=== PATIENT | male | born 1965 | race Caucasian/White ===

== ENCOUNTER 2021-01-29 22:03 | Inpatient (IN) | payer MEDICAID, SELFPAY ==
[2021-01-29 21:33] VITALS: BMI 32.0
[2021-01-29 21:34] VITALS: BP 137/82; PULSE 84; RESP 28; TEMP 37.7; O2SAT 89
--- NOTE | 2021-01-29 22:08 | HP.PCM.HOS_ITS ---
HPI - General General Date of Admission: 01/29/21 Date of Service: 01/29/21 Chief Complaint: COVID-LIKE SYMPTOMS HPI Narrative MICHELLE SCHMITZ, is a 55 M previous healthy who presents to outside hospital emergency department with a 9-day history of progressively worsening Covid-like symptoms. He describes his covid-like symptoms as shortness of breath; productive cough with greenish-yellowish sputum; fatigue; weakness; dysgeusia; anosmia; myalgia; and chills. He denies sore throat. He denies anorexia or diarrhea. He is not been vaccinated against COVID-19 virus. PFSH Medical History no medical history no medical history Home Medications vit A-vit O-bude-sdstrgli [Zinc (with A and C) Lozenges] 1 chas PO Q2H 01/29/21 [History Last Taken Unknown] Allergy/AdvReac Type Severity Reaction Status Date / Time No Known Allergies Allergy Verified 01/29/21 21:57 Family History (Updated 01/29/21 @ 22:[address] Rashad Abebe MD) Other Cancer Surgical History History of ear surgery Social History Smoking Status: Never smoker ROS ROS Narrative Constitutional: Reports fever, chills, and fatigue. Denies anorexia and change in weight Eyes: Denies blurry vision, change in eye color, change in vision, discharge from eye(s), double vision, erythema, eye pain, loss of vision or other HEENT: Denies abnormal hearing, dysphagia, ear pain, epistaxis, headache(s), hearing loss, nasal congestion, nasal discharge, post nasal drip, sinus pressu re, sore throat or other Cardiovascular: Denies chest pain or palpitations. Respiratory/Chest: Reports SOB. Reports productive cough. Gastrointestinal: Denies abdominal pain, coffee ground emesis, constipation, diarrhea, dyspepsia, hematemesis, hematochezia, loose stools, melena, nausea, vomiting or other Genitourinary: Denies burning urination, difficulty urinating, dysuria, hematuria, nocturia, urinary frequency, urinary hesitancy, urinary incontinence, urinary urgency or other Musculoskeletal: Reports myalgia and back pain. Neurologic: Denies abnormal gait, abnormal speech, confusion, disequilibrium, dizziness, focal weakness, headache(s), numbness, paresthesias, seizure-like activity, seizures, syncope, tingling, tremor(s) or other Psychiatric: Denies anxiety, depression, homicidal ideation, suicidal ideation or other Endocrinology: Denies change in body appearance, cold intolerance, excessive sweating, heat intolerance, polydipsia, polyuria or other Hematologic/Lymphatic: Denies anemia, easy bleeding, easy bruising, lymphadenopathy or other Integumentary: Denies rashes Allergic/Immunologic: Denies rhinitis, hives, eczema, asthma or other Vital Signs Vital Signs Vital Signs: 01/29/21 21:34 Temperature 99.8 F H Temperature Source Oral Pulse Rate 84 Respiratory Rate 28 H Blood Pressure 137/82 H Blood Pressure Mean 100 Blood Pressure Source Monitor Blood Pressure Position Semi-Fowlers Blood Pressure Location Right Arm Pulse Ox 89 Oxygen Delivery Method Nasal Cannula Oxygen Flow Rate (L/min) 15 Weight Weight: 101.2 kg Body Mass Index (BMI) 32.0 Physical Exam Narrative Physical exam: General: Well-nourished, well-developed. Head: Normocephalic, atraumatic, no tenderness Eyes: PERRLA, EOMI ENT, no trauma, moist mucous membranes, no rhinorrhea Neck: Nontender, full range of motion, no spinal tenderness, deformities, step- off CVS: Regular rate and rhythm. S1-S2 present. No murmur, gallop or rub. Respiratory : Tachypnea; Rales; chest wall nontender. Abdomen: Soft, nontender, nondistended, normal bowel sounds, no masses : Deferred Back: Nontender, no CVA tenderness, no midline spinal tenderness, deformities, step-offs Extremities: Nontender full range of motion, no trauma Skin: Normal color, no trauma, abrasions Neuro: Alert, oriented, cranial nerves II through XII grossly intact. Psychiatry: Normal mood. Normal affect. Not depressed. Not anxious. Assessment & Plan Assessment/Plan (1) Acute respiratory failure with hypoxemia: (2) Pneumonia due to COVID-19 virus: PLAN: Acute hypoxemic respiratory failure secondary to SARS- COV 2 Chest x-ray image independently interpreted showed multifocal pneumonia. Patient with tachypnea. Respiratory rate of 28. On high Flow oxygen of 15 L with oxygen saturation of 89%. Continue supplemental oxygenation and titrate to keep oxygen to 90%. Positive coronavirus test at outside hospital ED. Patient with mild elevation of liver enzymes at outside hospital ED. Alkaline phosphatase at outside hospital 73; ALT 104; AST 70. Estimated creatinine clearance by Cockcroft-Gault is 136 mL/min. Creatinine also hospital was 0.88. Creatinine clearance is more than 30. Begin patient on remdesivir and Decadron. Trend CBC and CMP. Normal D-dimer at outside hospital. Check procalcitonin. Incentive spirometer ordered Tylenol for fever Mucinex ordered Proair as needed. Infectious disease consult. Elevated blood pressure without diagnosis of hypertension Trend BP DVT Prophylaxis: Lovenox ordered Charges/Coding Visit Charges Inpatient E&M: 24181 Init Hosp L3
[2021-01-29 22:20] VITALS: RESP 22; O2SAT 90
[2021-01-29 22:30] VITALS: PULSE 74; O2SAT 95
[2021-01-29] MEDS: guaiFENesin 1,200 MG Tablet 1200 MG PO (22:53)
[2021-01-30] VITALS (25 sets, daily range): BP systolic 107–152; BP diastolic 70–87; PULSE 39–85; RESP 12–40; TEMP 36.9–38.2; O2SAT 87–99
[2021-01-30] MEDS: Acetaminophen 325 MG Tablet 650 MG PO ×2 (00:19→06:52)
[2021-01-30] MEDS: 0.9% Saline Lock 10 ML Syringe IV (03:14)
[2021-01-30 05:46] LABS: Absolute Neutrophil Count 7.6 X10^3/uL (2.0-7.7); Basophil# 0.01 X10^3/uL; Basophil% 0.1 % (0-1); Hematocrit 42.2 % (40-54); Hemoglobin 14.2 g/dL (13.0-16.5); Mean Corp Hgb Conc 33.6 g/dL (32-36); Mean Corpuscular Hgb 28.7 pg (27.0-32.0); Mean Corpuscular Volume 85.4 fL (80-94); Mean Platelet Vol. 9.8 fl (6.2-12.0); Monocyte# 0.42 X10^3/uL; Monocyte% 4.7 % (0-10); NRBC Flagged by Analyzer 0 % (0-5); Neutrophil # 7.56 X10^3/uL (2.7-7.7); Neutrophil % 85.5 % (47-70); Platelet Count 250 K/mm3 (150-450); RBC Distribution Width CV 12.6 % (11.6-14.6); Red Blood Count 4.94 M/mm3 (4.6-6.2); White Blood Count 8.9 K/mm3 (4.4-11.0)
[2021-01-30 06:36] LABS: ALB/GLOB Ratio 0.5 RATIO (0.9-2.4); AST(SGOT) 55 U/L (15-37); Alanine Aminotransfer ALT/SGPT 86 U/L (16-61); Albumin, Serum 2.7 g/dL (3.2-5.0); Alkaline Phosphatase 65 U/L (45-117); Anion Gap 6 (5-15); BUN 13 mg/dL (7-18); BUN/Creat Ratio 16.4 RATIO (10-20); Calcium,Total 8.4 mg/dL (8.5-10.1); Chloride 98 mmol/L (98-107); EST Glomerular Filtration Rate 107 mL/min (>60); Est Glom Filt Rate - Afr Amer 130 mL/min (>60); Estimated Creatinine Clearance 107.73 ml/min; Glucose 113 mg/dL (74-106); Potassium 4.2 mmol/L (3.5-5.1); Protein, Total 7.7 g/dL (6.4-8.2); Sodium Level 134 mmol/L (136-145)
[2021-01-30] MEDS: Albuterol 2.5 MG/3 ML VIAL.NEB. INHALATION (07:14)
[2021-01-30] MEDS: dexAMETHasone 2 MG TABLET 6 MG PO (07:53)
[2021-01-30] MEDS: Enoxaparin 30 MG/0.3 ML Syringe SC ×2 (07:54→21:47)
[2021-01-30] MEDS: guaiFENesin 1,200 MG Tablet 1200 MG PO (07:54)
--- NOTE | 2021-01-30 08:13 | PN.HOSP_ITS ---
Subjective Subjective Patient is a 55-year-old gentleman unvaccinated against COVID-19 who was transferred from an outside hospital with progressive shortness of breath. An assessment of acute hypoxic respiratory failure secondary to SARS-CoV-2 pneumonia made admitted to regular nursing floor for further management Objective Data Objective Data Vital Signs: Vital Signs Temp Pulse Resp BP Pulse Ox 100.1 F H 74 24 H 118/77 90 01/30/21 07:49 01/30/21 07:49 01/30/21 07:49 01/30/21 07:49 01/30/21 07:49 Oxygen Flow Rate (L/min) 55 Oxygen Delivery Method Airvo Weight: 101.2 kg Body Mass Index (BMI) 32.0 Intake & Output: Intake and Output for Last 24 Hours 01/28/21 01/29/21 01/30/21 23:59 23:59 23:59 Intake Total 350 / 350 Output Total 725 / 725 Balance -375 / -375 Lab / Micro Data Result Diagrams: 01/30/21 05:24 01/30/21 05:24 Labs: Laboratory Results - last 24 hr 01/30/21 05:24: WBC 8.9, RBC 4.94, Hgb 14.2, Hct 42.2, MCV 85.4, MCH 28.7, MCHC 33.6, RDW Std Deviation 39.0, RDW Coeff of Reyes 12.6, Plt Count 250, MPV 9.8, Immature Gran % (Auto) 0.700, Neut % (Auto) 85.5 H, Lymph % (Auto) 9.0 L, [place] % (Auto) 4.7, Eos % (Auto) 0.0, Baso % (Auto) 0.1, Absolute Neuts (auto) 7.6, Absolute Lymphs (auto) 0.80 L, Nucleated RBC % 0 01/30/21 05:24: Sodium 134 L, Potassium 4.2, Chloride 98, Carbon Dioxide 30.0, Anion Gap 6, BUN 13, Creatinine 0.80, Estim Creat Clear Calc 107.73, Est GFR (MDRD) Af Amer 130, Est GFR (MDRD) Non-Af 107, BUN/Creatinine Ratio 16.4, Glucose 113 H, Calcium 8.4 L, Total Bilirubin 0.60, AST 55 H, ALT 86 H, Alkaline Phosphatase 65, Total Protein 7.7, Albumin 2.7 L, Globulin 5.0 H, Albumin/Globulin Ratio 0.5 L Physical Exam Narrative GENERAL: Dyspneic at rest HEENT: Atraumatic; EYES; Anicteric, Normal Conjunctiva NECK; supple, normal thyroid, RESPIRATORY: Diminished to auscultation CARDIOVASCULAR: Regular S1 S2, GI: soft, normoactive bowel sounds, : No Renal angle tenderness; EXTREMITIES: No edema, no clubbing, MUSCULOSKELETAL: no muscle waisting NEURO: Awake; no lateralizing signs. SKIN: No Rash PSYCH; Flat affect Assessment & Plan Assessment/Plan (1) Acute respiratory failure with hypoxemia: (2) Pneumonia due to COVID-19 virus: PLAN: Patient is a 55-year-old gentleman unvaccinated against COVID-19 who was transferred from an outside hospital with progressive shortness of breath. An assessment of acute hypoxic respiratory failure secondary to SARS-CoV-2 pneumonia made admitted to regular nursing floor for further management 1. Acute hypoxic respiratory failure secondary to SARS-CoV-2 pneumonia -Admitted to regular nursing floor started on noninvasive ventilation Airvo with 15 L with O2 of 55% -currently being titrated to keep saturation greater than 90. Patient was started on remdesivir as well as Decadron on admission. In view of patient increasing oxygen requirement consult was placed to ID for consideration for baricitinib. Consult was also placed to pulmonary medicine 2. Mild hyponatremia ?Secondary to above subsequent monitoring with daily electrolytes ordered 3. Mildly elevated transaminases ?Monitoring with daily CBC and BMP 4. Prophylaxis ?SC Lovenox Advance planning; did discuss with the patient regarding advanced directives as well as CODE STATUS. Did explain the various scenarios involved ( FULL CODE, DNR CCA, DNR CCA with no intubation, and DNR CC and what each meant) patient remain full code with CPR and intubation if needed, order was placed. Time spent on discussion 18 minutes. Charges/Coding Visit Charges Inpatient E&M: 94281 Subs Hosp L3 Procedures Hospitalists Procedures: 05569 Advncd Care Plan 30 Min
[2021-01-30 10:43] LABS: Procalcitonin 0.09 ng/mL (0.00-0.09)
--- NOTE | 2021-01-30 14:33 | CASEMGMT ---
Addendum entered by Marion Leija 01/30/21 15:34: Pt pharmacy is [facility] in [place], [place]. [phone]. Addendum entered by Marion Leija 01/30/21 15:28: Pt to be trf'd to ICU. Pt will need PCP list and verification of DME providers in his area. Original Note: ABELINO MELGAR Assessment: Face to Face with pt for initial transition planning/care coordination assessment. RN TALIA introduced self and role at [facility], pt voices understanding and consents to assessment. Pt is A/O x4 and answers all questions appropriately at this time. Pt on airvo and sob during assessment. Care providers, pharmacy, and demographics verified/updated. Admitting Dx: COVID PCP: Pt denies. Agreeable to having a PCP list given, ABELINO MELGAR to give list. Specialists:Pt denies. Preferred Pharmacy: [facility] in [place] Insurance: [employer] Prescription Benefit: yes LW/HPOA: Pt denies having a LW/DPOA and denies need for info regarding AD. LNOK: Amarilis Byrd, Living Arrangements: Pt lives with and 4 children under the age of 18 in a single story house with ramps to enter. Pt reports he was I in ADL's prior to illness and denies concerns at home. Transportation: Pt drives self and denies concerns with transportation. DME/HHC/SNF: Pt has a walker and a cane at home but does not use either. Pt denies previous HHC or SNF stays. Pt states he was tested for COVID at [facility] in [place], [place]. Pt states his has not been tested but all 4 of his children were positive. He states they were quarantining and he does have friends and family who can provide him with groceries and supplies. ABELINO MELGAR to look up local in network DME companies in pt area. Briefly discussed the need for homegoing O2 but pt sob and assessment ended. Pt states no concerns with going home at time of dc. Pt states no further concerns/needs. CM to follow. Advised pt to ask CM if any further question/concerns/needs arise, voices understanding. Pt Goal: Home Plan: Home, follow for O2.
--- NOTE | 2021-01-30 15:18 | EX.PCM.CONCC ---
Assessment & Plan Assessment/Plan (1) Pneumonia due to COVID-19 virus: (2) Acute respiratory failure with hypoxemia: PLAN: RECOMMENDATIONS: 1. Continue AVAPS and wean FiO2 to maintain oxygen saturations at or above 90%. 2. Continue Precedex to facilitate BiPAP adherence. 3. Continue remdesivir, Decadron and baricitinib as ordered. Continue to monitor liver and renal function. 4. Continue Lovenox twice daily. 5. Awake prone positioning was encouraged. 6. Diuretic therapy, as needed, to maintain euvolemic state. IMPRESSIONS: 1. Acute hypoxemic respiratory failure secondary to COVID-19 pneumonia The patient presented to the hospital as a transfer of care from an outside facility with COVID-19 pneumonia and worsening dyspnea/hypoxemia. D-dimer was reportedly within normal limits. The patient was initiated on remdesivir, Decadron and baricitinib, following evaluation by infectious diseases. In addition, due to active sputum production, the patient was initiated on antimicrobials. Ultimately, the patient required transfer to the ICU as he was not tolerating noninvasive positive pressure ventilatory support due to agitation and anxiety. He was subsequently placed on Precedex to facilitate BiPAP adherence. If the patient does not begin to improve from a respiratory perspective over the next 24 to 48 hours, or clinically decompensates, would proceed with intubation. This note was generated with [employer] dictation software. It may contain incorrect words, spelling, and punctuation that were not noted in checking the note before signing. HPI Consult Data Date of Consult: 01/31/21 HPI Narrative Reason for Consultation: Acute hypoxemic respiratory failure secondary to COVID-19 pneumonia HPI Narrative: The patient is a 55-year-old male, with a history as outlined below, who presented to the hospital on January 29 as a transfer of care from an outside facility with progressive dyspnea. The patient also reported the presence of a productive cough. Symptom onset was sometime around January 20. The patient tested positive for coronavirus at the outside facility. The patient is unvaccinated against coronavirus. On presentation to the emergency department, the patient was noted to be febrile and tachypneic. The patient was also notably hypoxemic. Laboratory evaluation revealed a normal white blood cell count. Chemistry profile was unrevealing. The patient did have a normal D-dimer at the outside facility. The patient was subsequently started on remdesivir and Decadron. Twice daily Lovenox was initiated. Infectious diseases consultation was obtained. [facility] Medical History no medical history Home Medications vit A-vit B-rygc-czkzidrz [Zinc (with A and C) Lozenges] 1 chas PO Q2H 01/29/21 [History Last Taken Unknown] Allergy/AdvReac Type Severity Reaction Status Date / Time No Known Allergies Allergy Verified 01/29/21 21:57 Family History (Updated 01/29/21 @ 22:[address] Rashad Abebe MD) Other Cancer Surgical History History of ear surgery Social History Smoking Status: Never smoker ROS Constitutional Constitutional: Reports chills, fatigue and malaise Eyes Eyes: Denies blurry vision or change in vision ENT HEENT: Reports headache(s); Denies dizziness or epistaxis Cardiovascular Cardiovascular: Denies chest pain or dizziness Respiratory/Chest Respiratory/Chest: Reports cough and dyspnea Gastrointestinal Gastrointestinal: Denies abdominal pain, diarrhea, nausea or vomiting Genitourinary Genitourinary: Denies difficulty urinating Musculoskeletal Musculoskeletal: Denies arthralgias or back pain Integumentary Integumentary: Denies lesions, rash or skin ulcer Neurologic Neurologic: Denies abnormal gait or abnormal speech Psychiatric Psychiatric: Denies anxiety or depression Endocrine Endocrinology: Denies fatigue, polydipsia or polyuria Hematologic/Lymphatic Hematologic/Lymphatic: Denies easy bleeding or easy bruising Physical Exam Const alert General Appearance: cooperative, ill appearing and on BiPAP Nutritional Appearance: obese HEENT normocephalic and head/scalp atraumatic Eyes PERRL, EOMs intact bilaterally and conjunctivae normal Neck supple General: trachea midline Chest inspection of chest normal Resp Effort and Inspection: labored Auscultation: diminished lung sounds; Negative for rales, rhonchi or wheezes Cardio regular rate and regular rhythm GI normal to inspection, nondistended, normoactive bowel sounds Extremity no clubbing, cyanosis or edema Skin no rashes or lesions noted Neuro moves all extremities and no focal motor deficits Psych Mood & Affect: anxious Lab / Micro Data Result Diagrams: 01/31/21 04:45 01/31/21 04:45 Labs: Laboratory Results - last 24 hr 01/30/21 05:24: Procalcitonin 0.09 01/30/21 05:24: WBC 8.9, RBC 4.94, Hgb 14.2, Hct 42.2, MCV 85.4, MCH 28.7, MCHC 33.6, RDW Std Deviation 39.0, RDW Coeff of Reyes 12.6, Plt Count 250, MPV 9.8, Immature Gran % (Auto) 0.700, Neut % (Auto) 85.5 H, Lymph % (Auto) 9.0 L, [place] % (Auto) 4.7, Eos % (Auto) 0.0, Baso % (Auto) 0.1, Absolute Neuts (auto) 7.6, Absolute Lymphs (auto) 0.80 L, Nucleated RBC % 0 01/30/21 05:24: Sodium 134 L, Potassium 4.2, Chloride 98, Carbon Dioxide 30.0, Anion Gap 6, BUN 13, Creatinine 0.80, Estim Creat Clear Calc 107.73, Est GFR (MDRD) Af Amer 130, Est GFR (MDRD) Non-Af 107, BUN/Creatinine Ratio 16.4, Glucose 113 H, Calcium 8.4 L, Total Bilirubin 0.60, AST 55 H, ALT 86 H, Alkaline Phosphatase 65, Total Protein 7.7, Albumin 2.7 L, Globulin 5.0 H, Albumin/Globulin Ratio 0.5 L Micro: Microbiology 01/30/21 08:00 Sputum, Expectorated/Coughed Gram Stain - Final Charges/Coding Visit Charges Inpatient E&M: 19954 Init Hosp L3
--- NOTE | 2021-01-30 15:50 | CPS ---
Tried to put pt on BIPAP, pt is anxious. held mask to his face and he panicked, said he couldn't do it. RT, RN and ENT SURGEON in room, pt unable to tolerate 100% NRB mask unless he held it to his face. Explained that if he can't wear the BIPAP that we would need to intubate and place on a ventilator. Transported on 15lpm HFNC and pt holding 100 NRB mask close to his face. RT Explained situation to ICU staff prior to leaving room.
--- NOTE | 2021-01-30 15:53 | PCM.CONS.GEN ---
Assessment & Plan Assessment/Plan (1) Pneumonia due to COVID-19 virus: PLAN: Covid sx started around 01/20/21. Unvaccinated; recommend vaccine once out of the hospital and out of isolation. Isolate for 20 days. Sputum gram stain with heavy GPC. On dex and remdesivir. Reviewed EUA and discussed risks/benefits of baricitinib, will start. Will start ceftriaxone. Will follow, thank you, d/w Dr. Wright (2) Acute respiratory failure with hypoxemia: HPI Consult Data Date of Consult: 01/30/21 HPI Narrative HPI Narrative: MICHELLE SCHMITZ, is a 55 M who presented as transfer from [facility] with 10 days of not feeling well, headache, change in taste/smell, aches. Has not had covid vaccine. Coughing up green sputum. Admitted here on dex and remdesivir, now worsened O2, moving to icu. Full ROS performed and neg except as noted above. PFSH Medical History no medical history Home Medications vit A-vit X-xshq-enytyjvi [Zinc (with A and C) Lozenges] 1 chas PO Q2H 01/29/21 [History Last Taken Unknown] Allergy/AdvReac Type Severity Reaction Status Date / Time No Known Allergies Allergy Verified 01/29/21 21:57 Family History (Updated 01/29/21 @ 22:[address] Rashad Abebe MD) Other Cancer Surgical History History of ear surgery Social History Smoking Status: Never smoker Physical Exam Const alert General Appearance: cooperative Exam Limitations: no limitations HEENT normocephalic and head/scalp atraumatic Eyes PERRL and EOMs intact bilaterally Neck supple and No nodes Resp Auscultation: diminished lung sounds Cardio regular rate and regular rhythm GI normal to inspection, nondistended, normoactive bowel sounds Extremity no clubbing, cyanosis or edema Skin no rashes or lesions noted Neuro CN's II-XII intact bilaterally Lab / Micro Data Result Diagrams: 01/30/21 05:24 01/30/21 05:24 Labs: Laboratory Results - last 24 hr 01/30/21 05:24: Procalcitonin 0.09 01/30/21 05:24: WBC 8.9, RBC 4.94, Hgb 14.2, Hct 42.2, MCV 85.4, MCH 28.7, MCHC 33.6, RDW Std Deviation 39.0, RDW Coeff of Reyes 12.6, Plt Count 250, MPV 9.8, Immature Gran % (Auto) 0.700, Neut % (Auto) 85.5 H, Lymph % (Auto) 9.0 L, [place] % (Auto) 4.7, Eos % (Auto) 0.0, Baso % (Auto) 0.1, Absolute Neuts (auto) 7.6, Absolute Lymphs (auto) 0.80 L, Nucleated RBC % 0 01/30/21 05:24: Sodium 134 L, Potassium 4.2, Chloride 98, Carbon Dioxide 30.0, Anion Gap 6, BUN 13, Creatinine 0.80, Estim Creat Clear Calc 107.73, Est GFR (MDRD) Af Amer 130, Est GFR (MDRD) Non-Af 107, BUN/Creatinine Ratio 16.4, Glucose 113 H, Calcium 8.4 L, Total Bilirubin 0.60, AST 55 H, ALT 86 H, Alkaline Phosphatase 65, Total Protein 7.7, Albumin 2.7 L, Globulin 5.0 H, Albumin/Globulin Ratio 0.5 L Micro: Microbiology 01/30/21 08:00 Sputum, Expectorated/Coughed Gram Stain - Final
--- NOTE | 2021-01-30 16:04 | NURSING ---
called report to icu. pt transferred to icu
[2021-01-31] VITALS (36 sets, daily range): BP systolic 112–140; BP diastolic 71–87; PULSE 46–58; RESP 12–39; TEMP 36.6–36.8; O2SAT 86–95
[2021-01-31 05:11] LABS: Absolute Lymphocyte Count 0.85 X10^3/uL (0.83-4.51); Absolute Neutrophil Count 8.3 X10^3/uL (2.0-7.7); Basophil# 0.02 X10^3/uL; Basophil% 0.2 % (0-1); Hematocrit 41.8 % (40-54); Hemoglobin 13.8 g/dL (13.0-16.5); Lymphocyte # 0.85 X10^3/ul (0.83-4.51); Lymphocyte % 8.6 % (19-41); Mean Corpuscular Hgb 28.4 pg (27.0-32.0); Mean Platelet Vol. 9.9 fl (6.2-12.0); Monocyte# 0.55 X10^3/uL; Monocyte% 5.6 % (0-10); NRBC Flagged by Analyzer 0 % (0-5); Neutrophil # 8.31 X10^3/uL (2.7-7.7); Neutrophil % 84.6 % (47-70); Platelet Count 288 K/mm3 (150-450); RBC Distribution Width CV 12.4 % (11.6-14.6); RBC Distribution Width SD 38.7 fl (35.1-43.9); Red Blood Count 4.86 M/mm3 (4.6-6.2); White Blood Count 9.8 K/mm3 (4.4-11.0)
[2021-01-31 05:45] LABS: ALB/GLOB Ratio 0.5 RATIO (0.9-2.4); AST(SGOT) 41 U/L (15-37); Alanine Aminotransfer ALT/SGPT 71 U/L (16-61); Albumin, Serum 2.6 g/dL (3.2-5.0); Alkaline Phosphatase 59 U/L (45-117); Anion Gap 6 (5-15); BUN 30 mg/dL (7-18); BUN/Creat Ratio 32.3 RATIO (10-20); Calcium,Total 8.4 mg/dL (8.5-10.1); Chloride 101 mmol/L (98-107); Creatinine, Serum 0.93 mg/dL (0.70-1.30); EST Glomerular Filtration Rate 89 mL/min (>60); Est Glom Filt Rate - Afr Amer 108 mL/min (>60); Estimated Creatinine Clearance 92.67 ml/min; Glucose 130 mg/dL (74-106); Magnesium 2.4 mg/dL (1.6-2.6); Potassium 4.4 mmol/L (3.5-5.1); Protein, Total 7.6 g/dL (6.4-8.2); Sodium Level 137 mmol/L (136-145)
--- NOTE | 2021-01-31 06:21 | PCM.PN.INT ---
Assessment & Plan Assessment/Plan (1) Pneumonia due to COVID-19 virus: (2) Acute respiratory failure with hypoxemia: PLAN: RECOMMENDATIONS: 1. Continue AVAPS and wean FiO2 to maintain oxygen saturations at or above 90%. 2. Continue Precedex to facilitate BiPAP adherence. 3. Continue remdesivir, Decadron and baricitinib as ordered. Continue to monitor liver and renal function. 4. Continue Lovenox twice daily. 5. Awake prone positioning was encouraged. 6. Diuretic therapy, as needed, to maintain euvolemic state. IMPRESSIONS: 1. Acute hypoxemic respiratory failure secondary to COVID-19 pneumonia The patient presented to the hospital as a transfer of care from an outside facility with COVID-19 pneumonia and worsening dyspnea/hypoxemia. D-dimer was reportedly within normal limits. The patient was initiated on remdesivir, Decadron and baricitinib, following evaluation by infectious diseases. In addition, due to active sputum production, the patient was initiated on antimicrobials. Ultimately, the patient required transfer to the ICU as he was not tolerating noninvasive positive pressure ventilatory support due to agitation and anxiety. He was subsequently placed on Precedex to facilitate BiPAP adherence. If the patient does not begin to improve from a respiratory perspective over the next 24 to 48 hours, or clinically decompensates, would proceed with intubation. TIME: 34 minutes of critical care time, independent of procedures, was spent addressing the patient's acute hypoxemic respiratory failure secondary to COVID-19 pneumonia, review of all data and collaboration with care team. Subjective Subjective The patient was seen and examined at the bedside this morning. Events from the last 24 hours have been reviewed. The patient is currently afebrile, hemodynamically stable and maintaining appropriate oxygen saturations on BIPAP with an FiO2 requirement of 80%. The patient was transferred to the ICU yesterday due to further decompensation in his respiratory status. The patient was extremely anxious and was therefore placed on Precedex to facilitate BiPAP adherence. Unfortunately, the patient has become bradycardic, likely as a consequence of the Precedex. He remains tachypneic as well. Attempt to wean the Precedex beyond the current infusion rate leads to further agitation and anxiety. The patient is currently documented to be overall net -500 mL for the hospital admission. Liver and renal function are stable. Objective Data Objective Data The patient's most recent lab work, culture data and imaging studies have all been personally reviewed. Sputum culture is pending. Vital Signs: Vital Signs Temp Pulse Resp BP Pulse Ox 97.8 F 47 L 30 H 112/73 92 01/31/21 00:00 01/31/21 05:00 01/31/21 05:00 01/31/21 05:00 01/31/21 05:00 Oxygen Flow Rate (L/min) 60 Oxygen Delivery Method Bi-pap Weight: 101.2 kg Body Mass Index (BMI) 32.0 Intake & Output: Intake and Output for Last 24 Hours 01/29/21 01/30/21 01/31/21 23:59 23:59 23:59 Intake Total 847.55 / 861.78 178.74 / 178.74 Output Total 1475 / 1475 Balance -627.45 / -613.22 178.74 / 178.74 Lab / Micro Data Attestation: I reviewed the patient's lab results. Result Diagrams: 01/31/21 04:45 01/31/21 04:45 Labs: Laboratory Results - last 24 hr 01/30/21 05:24: Procalcitonin 0.09 01/30/21 05:24: Sodium 134 L, Potassium 4.2, Chloride 98, Carbon Dioxide 30.0, Anion Gap 6, BUN 13, Creatinine 0.80, Estim Creat Clear Calc 107.73, Est GFR (MDRD) Af Amer 130, Est GFR (MDRD) Non-Af 107, BUN/Creatinine Ratio 16.4, Glucose 113 H, Calcium 8.4 L, Total Bilirubin 0.60, AST 55 H, ALT 86 H, Alkaline Phosphatase 65, Total Protein 7.7, Albumin 2.7 L, Globulin 5.0 H, Albumin/Globulin Ratio 0.5 L 01/31/21 04:45: WBC 9.8, RBC 4.86, Hgb 13.8, Hct 41.8, MCV 86.0, MCH 28.4, MCHC 33.0, RDW Std Deviation 38.7, RDW Coeff of Reyes 12.4, Plt Count 288, MPV 9.9, Immature Gran % (Auto) 1.000 H, Neut % (Auto) 84.6 H, Lymph % (Auto) 8.6 L, [place] % (Auto) 5.6, Eos % (Auto) 0.0, Baso % (Auto) 0.2, Absolute Neuts (auto) 8.3 H, Absolute Lymphs (auto) 0.85, Nucleated RBC % 0 01/31/21 04:45: Sodium 137, Potassium 4.4, Chloride 101, Carbon Dioxide 30.0, Anion Gap 6, BUN 30 H, Creatinine 0.93, Estim Creat Clear Calc 92.67, Est GFR (MDRD) Af Amer 108, Est GFR (MDRD) Non-Af 89, BUN/Creatinine Ratio 32.3 H, Glucose 130 H, Calcium 8.4 L, Magnesium 2.4, Total Bilirubin 0.40, AST 41 H, ALT 71 H, Alkaline Phosphatase 59, Total Protein 7.6, Albumin 2.6 L, Globulin 5.0 H, Albumin/Globulin Ratio 0.5 L Micro: Microbiology 01/30/21 08:00 Sputum, Expectorated/Coughed Gram Stain - Final Physical Exam Const alert General Appearance: cooperative, ill appearing and on BiPAP Nutritional Appearance: obese HEENT normocephalic and head/scalp atraumatic Eyes PERRL, EOMs intact bilaterally and conjunctivae normal Neck supple General: trachea midline Chest inspection of chest normal Resp Auscultation: diminished lung sounds; Negative for rales, rhonchi or wheezes Cardio S1 normal heart sound and S2 normal heart sound Rate: bradycardia GI normal to inspection, nondistended, normoactive bowel sounds Extremity no clubbing, cyanosis or edema Skin no rashes or lesions noted Neuro moves all extremities and no focal motor deficits Psych Mood & Affect: flat affect Charges/Coding Procedures Hospitalists Procedures: 51308 Critial Care 1st Hr
--- NOTE | 2021-01-31 06:59 | PN.HOSP_ITS ---
Subjective Subjective Patient was transferred to the intensive care unit due to worsening respiratory symptoms. Currently on BiPAP with Precedex. Patient was found to be bradycardic thought to be side effect of Precedex Objective Data Objective Data Vital Signs: Vital Signs Temp Pulse Resp BP Pulse Ox 97.8 F 47 L 30 H 112/73 92 01/31/21 00:00 01/31/21 05:00 01/31/21 05:00 01/31/21 05:00 01/31/21 05:00 Oxygen Flow Rate (L/min) 60 Oxygen Delivery Method Bi-pap Weight: 101.5 kg Body Mass Index (BMI) 32.0 Intake & Output: Intake and Output for Last 24 Hours 01/29/21 01/30/21 01/31/21 23:59 23:59 23:59 Intake Total 847.55 / 861.78 178.74 / 178.74 Output Total 1475 / 1475 Balance -627.45 / -613.22 178.74 / 178.74 Lab / Micro Data Result Diagrams: 01/31/21 04:45 01/31/21 04:45 Labs: Laboratory Results - last 24 hr 01/30/21 05:24: Procalcitonin 0.09 01/31/21 04:45: WBC 9.8, RBC 4.86, Hgb 13.8, Hct 41.8, MCV 86.0, MCH 28.4, MCHC 33.0, RDW Std Deviation 38.7, RDW Coeff of Reyes 12.4, Plt Count 288, MPV 9.9, Immature Gran % (Auto) 1.000 H, Neut % (Auto) 84.6 H, Lymph % (Auto) 8.6 L, [place] % (Auto) 5.6, Eos % (Auto) 0.0, Baso % (Auto) 0.2, Absolute Neuts (auto) 8.3 H, Absolute Lymphs (auto) 0.85, Nucleated RBC % 0 01/31/21 04:45: Sodium 137, Potassium 4.4, Chloride 101, Carbon Dioxide 30.0, Anion Gap 6, BUN 30 H, Creatinine 0.93, Estim Creat Clear Calc 92.67, Est GFR (MDRD) Af Amer 108, Est GFR (MDRD) Non-Af 89, BUN/Creatinine Ratio 32.3 H, Glucose 130 H, Calcium 8.4 L, Magnesium 2.4, Total Bilirubin 0.40, AST 41 H, ALT 71 H, Alkaline Phosphatase 59, Total Protein 7.6, Albumin 2.6 L, Globulin 5.0 H, Albumin/Globulin Ratio 0.5 L Micro: Microbiology 01/30/21 08:00 Sputum, Expectorated/Coughed Gram Stain - Final Physical Exam Narrative GENERAL: Dyspneic at rest, on BiPAP HEENT: Atraumatic; EYES; Anicteric, Normal Conjunctiva NECK; supple, normal thyroid, RESPIRATORY: Diminished to auscultation CARDIOVASCULAR: Regular S1 S2, GI: soft, normoactive bowel sounds, : No Renal angle tenderness; EXTREMITIES: No edema, no clubbing, MUSCULOSKELETAL: no muscle waisting NEURO: Awake; no lateralizing signs. SKIN: No Rash PSYCH; Flat affect Assessment & Plan Assessment/Plan (1) Acute respiratory failure with hypoxemia: (2) Pneumonia due to COVID-19 virus: PLAN: Patient is a 55-year-old gentleman unvaccinated against COVID-19 who was transferred from an outside hospital with progressive shortness of breath. An assessment of acute hypoxic respiratory failure secondary to SARS-CoV-2 pneumonia made admitted to regular nursing floor for further management 1. Acute hypoxic respiratory failure secondary to SARS-CoV-2 pneumonia -Admitted to regular nursing floor started on noninvasive ventilation Airvo with 15 L with O2 of 55% -currently being titrated to keep saturation greater than 90. Patient was started on remdesivir as well as Decadron on admission. In view of patient increasing oxygen requirement consult was placed to ID for consideration for baricitinib. Consult was also placed to pulmonary medicine -01/31/2022; Patient was transferred to the intensive care unit due to worsening respiratory symptoms. Currently on BiPAP with Precedex. Patient was found to be bradycardic thought to be side effect of Precedex. Patient was started on baricitinib by ID 2. Mild hyponatremia ?Secondary to above subsequent monitoring with daily electrolytes ordered 3. Mildly elevated transaminases ?Monitoring with daily CBC and BMP 4. DVT prophylaxis ?SC Lovenox Charges/Coding Visit Charges Inpatient E&M: 34779 Subs Hosp L3
[2021-01-31] MEDS: Enoxaparin 30 MG/0.3 ML Syringe SC ×2 (09:06→21:27)
[2021-01-31] MEDS: guaiFENesin 1,200 MG Tablet 1200 MG PO (21:27)
[2021-02-01] VITALS (37 sets, daily range): BP systolic 123–157; BP diastolic 74–108; PULSE 49–108; RESP 12–37; TEMP 36.8–37.4; O2SAT 84–96
[2021-02-01 04:22] LABS: Absolute Lymphocyte Count 0.91 X10^3/uL (0.83-4.51); Absolute Neutrophil Count 7.7 X10^3/uL (2.0-7.7); Basophil# 0.01 X10^3/uL; Basophil% 0.1 % (0-1); Hematocrit 41.2 % (40-54); Hemoglobin 13.6 g/dL (13.0-16.5); Lymphocyte # 0.91 X10^3/ul (0.83-4.51); Lymphocyte % 9.9 % (19-41); Mean Corpuscular Hgb 28.6 pg (27.0-32.0); Mean Corpuscular Volume 86.7 fL (80-94); Mean Platelet Vol. 9.6 fl (6.2-12.0); Monocyte# 0.47 X10^3/uL; Monocyte% 5.1 % (0-10); NRBC Flagged by Analyzer 0 % (0-5); Neutrophil # 7.73 X10^3/uL (2.7-7.7); Neutrophil % 84.2 % (47-70); Platelet Count 309 K/mm3 (150-450); RBC Distribution Width CV 12.4 % (11.6-14.6); RBC Distribution Width SD 39.8 fl (35.1-43.9); Red Blood Count 4.75 M/mm3 (4.6-6.2); White Blood Count 9.2 K/mm3 (4.4-11.0)
[2021-02-01 04:36] LABS: ALB/GLOB Ratio 0.5 RATIO (0.9-2.4); AST(SGOT) 38 U/L (15-37); Alanine Aminotransfer ALT/SGPT 63 U/L (16-61); Albumin, Serum 2.4 g/dL (3.2-5.0); Alkaline Phosphatase 61 U/L (45-117); Anion Gap 7 (5-15); BUN 36 mg/dL (7-18); BUN/Creat Ratio 37.8 RATIO (10-20); Calcium,Total 8.3 mg/dL (8.5-10.1); Chloride 106 mmol/L (98-107); Creatinine, Serum 0.95 mg/dL (0.70-1.30); EST Glomerular Filtration Rate 87 mL/min (>60); Est Glom Filt Rate - Afr Amer 105 mL/min (>60); Estimated Creatinine Clearance 90.72 ml/min; Globulin 4.9 g/dL (2.2-4.2); Glucose 128 mg/dL (74-106); Potassium 4.2 mmol/L (3.5-5.1); Protein, Total 7.3 g/dL (6.4-8.2); Sodium Level 141 mmol/L (136-145)
--- NOTE | 2021-02-01 06:17 | PCM.PN.INT ---
Assessment & Plan Assessment/Plan (1) Pneumonia due to COVID-19 virus: (2) Acute respiratory failure with hypoxemia: PLAN: RECOMMENDATIONS: 1. Continue Airvo as tolerated. Wean FiO2 for saturations greater than 90%. 2. Continue AVAPS, at a minimum, with naps and nightly. 3. Continue Precedex PRN to facilitate AVAPS adherence. 4. Continue remdesivir, Decadron and baricitinib as ordered. Continue to monitor liver and renal function. 5. Continue Lovenox twice daily. 6. Awake prone positioning was encouraged. 7. Diuretic therapy, as needed, to maintain euvolemic state. IMPRESSIONS: 1. Acute hypoxemic respiratory failure secondary to COVID-19 pneumonia The patient presented to the hospital as a transfer of care from an outside facility with COVID-19 pneumonia and worsening dyspnea/hypoxemia. D-dimer was reportedly within normal limits. The patient was initiated on remdesivir, Decadron and baricitinib, following evaluation by infectious diseases. In addition, due to active sputum production, the patient was initiated on antimicrobials. Ultimately, the patient required transfer to the ICU as he was not tolerating noninvasive positive pressure ventilatory support due to agitation and anxiety. He was subsequently placed on Precedex to facilitate BiPAP adherence. This morning, the patient was able to be weaned to heated high flow. I would recommend that this be continued as tolerated with plans to continue AVAPS therapy with naps and nightly. Will give Lasix today as well. TIME: 32 minutes of critical care time, independent of procedures, was spent addressing the patient's acute hypoxemic respiratory failure secondary to COVID-19 pneumonia, review of all data and collaboration with care team. Subjective Subjective The patient was seen and examined at the bedside this morning. Events from the last 24 hours have been reviewed. The patient is currently afebrile, hemodynamically stable and maintaining appropriate oxygen saturations on Airvo heated high flow with an FiO2 requirement of 93% and flow rate of 60 L/min. The patient again tolerated BiPAP throughout the day yesterday and overnight. He was able to be weaned off of Precedex. The patient is currently documented to be overall net -900 mL for the hospitalization. Liver and renal function are stable. The patient remains on remdesivir, antimicrobials, Decadron, Lovenox and baricitinib. Objective Data Objective Data The patient's most recent lab work, culture data and imaging studies have all been personally reviewed. Sputum culture is currently demonstrating growth of staph aureus and alpha hemolytic Streptococcus. Vital Signs: Vital Signs Temp Pulse Resp BP Pulse Ox 98.2 F 75 24 H 131/77 H 90 02/01/21 04:00 02/01/21 05:00 02/01/21 05:00 02/01/21 05:00 02/01/21 05:00 Oxygen Flow Rate (L/min) 60 Oxygen Delivery Method Airvo Weight: 102.058 kg Body Mass Index (BMI) 32.0 Intake & Output: Intake and Output for Last 24 Hours 01/30/21 01/31/21 02/01/21 23:59 23:59 23:59 Intake Total 847.55 / 861.78 1101.06 / 1101.06 339.84 / 339.84 Output Total 1475 / 1475 1700 / 1700 Balance -627.45 / -613.22 -598.94 / -598.94 339.84 / 339.84 Lab / Micro Data Attestation: I reviewed the patient's lab results. Result Diagrams: 02/01/21 04:07 02/01/21 04:07 Labs: Laboratory Results - last 24 hr 02/01/21 04:07: WBC 9.2, RBC 4.75, Hgb 13.6, Hct 41.2, MCV 86.7, MCH 28.6, MCHC 33.0, RDW Std Deviation 39.8, RDW Coeff of Reyes 12.4, Plt Count 309, MPV 9.6, Immature Gran % (Auto) 0.700, Neut % (Auto) 84.2 H, Lymph % (Auto) 9.9 L, [place] % (Auto) 5.1, Eos % (Auto) 0.0, Baso % (Auto) 0.1, Absolute Neuts (auto) 7.7, Absolute Lymphs (auto) 0.91, Nucleated RBC % 0 02/01/21 04:07: Sodium 141, Potassium 4.2, Chloride 106, Carbon Dioxide 28.0, Anion Gap 7, BUN 36 H, Creatinine 0.95, Estim Creat Clear Calc 90.72, Est GFR (MDRD) Af Amer 105, Est GFR (MDRD) Non-Af 87, BUN/Creatinine Ratio 37.8 H, Glucose 128 H, Calcium 8.3 L, Total Bilirubin 0.90, AST 38 H, ALT 63 H, Alkaline Phosphatase 61, Total Protein 7.3, Albumin 2.4 L, Globulin 4.9 H, Albumin/Globulin Ratio 0.5 L Micro: Microbiology 01/30/21 08:00 Sputum, Expectorated/Coughed Gram Stain - Final 01/30/21 08:00 Sputum, Expectorated/Coughed Respiratory Culture - Preliminary Staphylococcus aureus Alpha Hemolytic Streptococcus Physical Exam Const alert General Appearance: cooperative and ill appearing Nutritional Appearance: obese HEENT normocephalic and head/scalp atraumatic Eyes PERRL, EOMs intact bilaterally and conjunctivae normal Neck supple General: trachea midline Chest inspection of chest normal Resp Auscultation: diminished lung sounds; Negative for rales, rhonchi or wheezes Cardio regular rate, regular rhythm, S1 normal heart sound and S2 normal heart sound GI normal to inspection, nondistended, normoactive bowel sounds Extremity no clubbing, cyanosis or edema Skin no rashes or lesions noted Neuro moves all extremities and no focal motor deficits Psych Mood & Affect: flat affect Charges/Coding Procedures Hospitalists Procedures: [id number] Critial Care 1st Hr
--- NOTE | 2021-02-01 07:12 | PCM.PN.HOSP ---
Subjective Subjective Patient seen in the ICU remains on BiPAP Objective Data Objective Data Vital Signs: Vital Signs Temp Pulse Resp BP Pulse Ox 98.2 F 89 18 143/87 H 91 02/01/21 04:00 02/01/21 07:00 02/01/21 07:00 02/01/21 07:00 02/01/21 07:00 Oxygen Flow Rate (L/min) 60 Oxygen Delivery Method Airvo Weight: 102.058 kg Body Mass Index (BMI) 32.0 Intake & Output: Intake and Output for Last 24 Hours 01/30/21 01/31/21 02/01/21 23:59 23:59 23:59 Intake Total 847.55 / 861.78 1101.06 / 1101.06 339.84 / 339.84 Output Total 1475 / 1475 1700 / 1700 350 / 350 Balance -627.45 / -613.22 -598.94 / -598.94 -10.16 / -10.16 Lab / Micro Data Result Diagrams: 02/01/21 04:07 02/01/21 04:07 Labs: Laboratory Results - last 24 hr 02/01/21 04:07: WBC 9.2, RBC 4.75, Hgb 13.6, Hct 41.2, MCV 86.7, MCH 28.6, MCHC 33.0, RDW Std Deviation 39.8, RDW Coeff of Reyes 12.4, Plt Count 309, MPV 9.6, Immature Gran % (Auto) 0.700, Neut % (Auto) 84.2 H, Lymph % (Auto) 9.9 L, [place] % (Auto) 5.1, Eos % (Auto) 0.0, Baso % (Auto) 0.1, Absolute Neuts (auto) 7.7, Absolute Lymphs (auto) 0.91, Nucleated RBC % 0 02/01/21 04:07: Sodium 141, Potassium 4.2, Chloride 106, Carbon Dioxide 28.0, Anion Gap 7, BUN 36 H, Creatinine 0.95, Estim Creat Clear Calc 90.72, Est GFR (MDRD) Af Amer 105, Est GFR (MDRD) Non-Af 87, BUN/Creatinine Ratio 37.8 H, Glucose 128 H, Calcium 8.3 L, Total Bilirubin 0.90, AST 38 H, ALT 63 H, Alkaline Phosphatase 61, Total Protein 7.3, Albumin 2.4 L, Globulin 4.9 H, Albumin/Globulin Ratio 0.5 L Micro: Microbiology 01/30/21 08:00 Sputum, Expectorated/Coughed Gram Stain - Final 01/30/21 08:00 Sputum, Expectorated/Coughed Respiratory Culture - Preliminary Meth. resistant Staph. aureus Streptococcus pneumoniae Physical Exam Narrative GENERAL: Dyspneic at rest, on BiPAP HEENT: Atraumatic; EYES; Anicteric, Normal Conjunctiva NECK; supple, normal thyroid, RESPIRATORY: Diminished to auscultation CARDIOVASCULAR: Regular S1 S2, GI: soft, normoactive bowel sounds, : No Renal angle tenderness; EXTREMITIES: No edema, no clubbing, MUSCULOSKELETAL: no muscle waisting NEURO: Awake; no lateralizing signs. SKIN: No Rash PSYCH; Flat affect Assessment & Plan Assessment/Plan (1) Acute respiratory failure with hypoxemia: (2) Pneumonia due to COVID-19 virus: PLAN: Patient is a 55-year-old gentleman unvaccinated against COVID-19 who was transferred from an outside hospital with progressive shortness of breath. An assessment of acute hypoxic respiratory failure secondary to SARS-CoV-2 pneumonia made admitted to regular nursing floor for further management 1. Acute hypoxic respiratory failure secondary to SARS-CoV-2 pneumonia -Admitted to regular nursing floor started on noninvasive ventilation Airvo with 15 L with O2 of 55% -currently being titrated to keep saturation greater than 90. Patient was started on remdesivir as well as Decadron on admission. In view of patient increasing oxygen requirement consult was placed to ID for consideration for baricitinib. Consult was also placed to pulmonary medicine -01/31/2021; Patient was transferred to the intensive care unit due to worsening respiratory symptoms. Currently on BiPAP with Precedex. Patient was found to be bradycardic thought to be side effect of Precedex. Patient was started on baricitinib by ID -02/18/2021; patient seen remains in ICU on BiPAP with no significant improvement in overall condition 2. Mild hyponatremia ?Secondary to above subsequent monitoring with daily electrolytes ordered 3. Mildly elevated transaminases ?Monitoring with daily CBC and BMP 4. DVT prophylaxis ?SC Lovenox 5. Physical deconditioning - Requested for PT OT eval and administrator social welfare to assist with discharge planning Charges/Coding Visit Charges Inpatient E&M: 85740 Subs Hosp L3
--- NOTE | 2021-02-01 08:12 | PHA.PHARE_ITS ---
Consult Pharmacy has been consulted to manage selected antiobiotic: Vancomycin Type of Consult: New start Suspected Infection: Pneumonia Labs: Sodium 141 mmol/L (136-145) 02/01/21 04:07 Potassium 4.2 mmol/L (3.5-5.1) 02/01/21 04:07 Chloride 106 mmol/L (98-107) 02/01/21 04:07 Carbon Dioxide 28.0 mmol/L (21.0-32.0) 02/01/21 04:07 Anion Gap 7 (5-15) 02/01/21 04:07 BUN 36 mg/dL (7-18) H 02/01/21 04:07 Creatinine 0.95 mg/dL (0.70-1.30) 02/01/21 04:07 Est GFR (MDRD) Af Amer 105 mL/min (>60) 02/01/21 04:07 Est GFR (MDRD) Non-Af 87 mL/min (>60) 02/01/21 04:07 BUN/Creatinine Ratio 37.8 RATIO (10-20) H 02/01/21 04:07 Glucose 128 mg/dL (74-106) H 02/01/21 04:07 Microbiology: Microbiology 01/30/21 08:00 Sputum, Expectorated/Coughed Gram Stain - Final 01/30/21 08:00 Sputum, Expectorated/Coughed Respiratory Culture - Preliminary Meth. resistant Staph. aureus Streptococcus pneumoniae Weight used for dosin kg Estimated Creatinine Clearance: 91ML/MIN Goal Trough: 15-20 mcg/mL Pharmacy Plan for Drug Dosing: Give initial loading dose of 2000mg IV x1, then continue with 2000mg IV q12h per [facility] dosing protocol. Will check a vanc trough level before the 4th dose. Pharmacy Service will continue to monitor and adjust dosing as required. Follow-Up Labs: Trough Vancomycin Labs to be done on [date and time ordered]: 02/02/21 18:30
[2021-02-01] MEDS: Enoxaparin 30 MG/0.3 ML Syringe SC ×2 (09:53→20:24)
[2021-02-01] MEDS: guaiFENesin 1,200 MG Tablet 1200 MG PO ×2 (09:54→20:24)
[2021-02-01] MEDS: Furosemide 40 MG/4 ML Vial IV (11:17)
[2021-02-01] MEDS: dexAMETHasone 10 MG/ML Vial 6 MG IV (11:17)
[2021-02-01] MEDS: Acetaminophen 325 MG Tablet 650 MG PO (21:30)
[2021-02-02] VITALS (42 sets, daily range): BP systolic 93–177; BP diastolic 54–107; PULSE 51–92; RESP 12–30; TEMP 36.3–37.1; O2SAT 4–95
--- NOTE | 2021-02-02 01:32 | NURSING ---
Addendum entered by Jurgen Lara 02/02/21 01:38: 0135: Return call from Dr Blanca. Updated on pt status. States he will order Lasix and continue to monitor. Original Note: Pt resting bed with eyes closed, O2 sats 86-88% on monitor. Message sent to Dr Blanca: Carson has been on bipap/avaps 100%, sats have been 86-88. Also having increased ectopy, labs yesterday were normal. Awaiting further response.
[2021-02-02] MEDS: Furosemide 40 MG/4 ML Vial IV (01:50)
[2021-02-02 03:22] LABS: Absolute Lymphocyte Count 0.76 X10^3/uL (0.83-4.51); Absolute Neutrophil Count 7.4 X10^3/uL (2.0-7.7); Basophil# 0.02 X10^3/uL; Basophil% 0.2 % (0-1); Hematocrit 38.9 % (40-54); Hemoglobin 12.7 g/dL (13.0-16.5); Lymphocyte # 0.76 X10^3/ul (0.83-4.51); Lymphocyte % 8.8 % (19-41); Mean Corp Hgb Conc 32.6 g/dL (32-36); Mean Corpuscular Hgb 28.4 pg (27.0-32.0); Mean Platelet Vol. 9.5 fl (6.2-12.0); Monocyte# 0.37 X10^3/uL; Monocyte% 4.3 % (0-10); NRBC Flagged by Analyzer 0 % (0-5); Neutrophil # 7.36 X10^3/uL (2.7-7.7); Neutrophil % 85.8 % (47-70); Platelet Count 354 K/mm3 (150-450); RBC Distribution Width CV 12.4 % (11.6-14.6); RBC Distribution Width SD 39.8 fl (35.1-43.9); Red Blood Count 4.47 M/mm3 (4.6-6.2); White Blood Count 8.6 K/mm3 (4.4-11.0)
[2021-02-02 03:27] LABS: ALB/GLOB Ratio 0.5 RATIO (0.9-2.4); AST(SGOT) 34 U/L (15-37); Alanine Aminotransfer ALT/SGPT 61 U/L (16-61); Albumin, Serum 2.4 g/dL (3.2-5.0); Alkaline Phosphatase 61 U/L (45-117); Anion Gap 6 (5-15); BUN 37 mg/dL (7-18); Calcium,Total 8.3 mg/dL (8.5-10.1); Chloride 105 mmol/L (98-107); Creatinine, Serum 0.86 mg/dL (0.70-1.30); EST Glomerular Filtration Rate 98 mL/min (>60); Est Glom Filt Rate - Afr Amer 118 mL/min (>60); Estimated Creatinine Clearance 100.21 ml/min; Globulin 4.9 g/dL (2.2-4.2); Glucose 133 mg/dL (74-106); Potassium 3.5 mmol/L (3.5-5.1); Protein, Total 7.3 g/dL (6.4-8.2); Sodium Level 140 mmol/L (136-145)
--- NOTE | 2021-02-02 05:41 | PN.CC_ITS ---
Assessment & Plan Assessment/Plan (1) Pneumonia due to COVID-19 virus: (2) Acute respiratory failure with hypoxemia: PLAN: RECOMMENDATIONS: 1. Proceed with intubation, given lack of respiratory improvement over the last several days on BiPAP. 2. Obtain arterial blood gas in 1 hour. 3. Obtain sputum and send for culture. 4. Start propofol, fentanyl and cis atracurium. 5. Continue antimicrobials as ordered. 6. Continue Lovenox, baricitinib and Decadron as ordered. 7. Diuretic therapy, as needed, to maintain euvolemic state. IMPRESSIONS: 1. Acute hypoxemic respiratory failure secondary to COVID-19 and superimposed pneumococcal/MRSA pneumonia The patient presented to the hospital as a transfer of care from an outside facility with COVID-19 pneumonia and worsening dyspnea/hypoxemia. D-dimer was reportedly within normal limits. The patient was initiated on remdesivir, Decadron and baricitinib, following evaluation by infectious diseases. He was also started on broad-spectrum antimicrobials. Sputum culture was subsequently positive for MRSA and Streptococcus pneumonia. Following multiple days on noninvasive positive pressure ventilatory support, the patient failed to improve from a respiratory perspective and was subsequently intubated on February 02. He will be placed on appropriate sedation along with cis atracurium to prevent ventilator dyssynchrony and coughing. Prone positioning can be entertained if needed. Continue Lovenox as ordered. Nutrition consultation for tube feed recommendations. TIME: 42 minutes of critical care time, independent of procedures, was spent addres sing the patient's acute hypoxemic respiratory failure secondary to COVID-19 pneumonia, review of all data and collaboration with care team. Subjective Subjective The patient was seen and examined at the bedside this morning. Events from the last 24 hours have been reviewed. The patient is currently afebrile, hemodynamically stable and maintaining appropriate oxygen saturations on BiPAP with an FiO2 requirement of 100%. Although Airvo heated high flow was attempted yesterday, the patient was not able to last long on the therapy and had to be placed back on noninvasive positive pressure ventilatory support. His ox ygenation status has worsened overnight. He did receive a one-time dose of IV Lasix. He is currently documented to be overall net -1.3 L for the hospitalization. The patient remains on antimicrobials, remdesivir, Decadron, Lovenox and baricitinib. Liver and renal function remained stable. Despite multiple days on noninvasive positive pressure ventilatory support, the patient has not improved from a respiratory perspective. Therefore, I spoke very frankly with the patient this morning regarding intubation. He is agreeable to proceed. Intubation Indication: Respiratory failure Consent was obtained from: Patient The patient was placed in the appropriate sniffing position. Preoxygenated sedation via BiPAP was provided for a minimum of 3 minutes. The patient had continuous cardiac as well as pulse oximetry monitoring during the procedure. Procedure sedation was provided by the administration of 4 mg of Versed, 20 mg of etomidate and 100 mg of succinylcholine. Direct laryngoscopy was then performed using a number 4 MAC blade, which revealed a grade 1 view. A 8.0 mm endotracheal tube was visualized advancing between the cords to the level of 24 cm at the lip. The stylette was then removed and discarded. Tube placement was confirmed by fogging in the tube along with equal and bilateral breath sounds. Colorimetric change was visualized on the CO2 meter. The cuff was then inflated and the tube secured using a commercially available device. A good pulse oximetry waveform was seen on the monitor throughout the procedure. A portable chest x-ray has been ordered to confirm appropriate placement. The patient tolerated the procedure well. Objective Data Objective Data The patient's most recent lab work, culture data and imaging studies have all been personally reviewed. Sputum culture is currently demonstrating growth of MRSA and Streptococcus pneumoniae. Vital Signs: Vital Signs Temp Pulse Resp BP Pulse Ox 98.1 F 62 24 H 138/92 H 89 02/02/21 03:00 02/02/21 05:00 02/02/21 05:00 02/02/21 05:00 02/02/21 05:00 Oxygen Flow Rate (L/min) 60 Oxygen Delivery Method Bi-pap Weight: 102.058 kg Body Mass Index (BMI) 32.0 Intake & Output: Intake and Output for Last 24 Hours 01/31/21 02/01/21 02/02/21 23:59 23:59 23:59 Intake Total 1101.06 / 1101.06 1769.84 / 1889.84 370 / 370 Output Total 1700 / 1700 1050 / 1050 Balance -598.94 / -598.94 719.84 / 839.84 370 / 370 Lab / Micro Data Attestation: I reviewed the patient's lab results. Result Diagrams: 02/02/21 03:00 02/02/21 03:00 Labs: Laboratory Results - last 24 hr 02/02/21 03:00: WBC 8.6, RBC 4.47 L, Hgb 12.7 L, Hct 38.9 L, MCV 87.0, MCH 28.4, MCHC 32.6, RDW Std Deviation 39.8, RDW Coeff of Reyes 12.4, Plt Count 354, MPV 9.5, Immature Gran % (Auto) 0.900, Neut % (Auto) 85.8 H, Lymph % (Auto) 8.8 L, [place] % (Auto) 4.3, Eos % (Auto) 0.0, Baso % (Auto) 0.2, Absolute Neuts (auto) 7. 4, Absolute Lymphs (auto) 0.76 L, Nucleated RBC % 0 02/02/21 03:00: Sodium 140, Potassium 3.5, Chloride 105, Carbon Dioxide 29.0, Anion Gap 6, BUN 37 H, Creatinine 0.86, Estim Creat Clear Calc 100.21, Est GFR (MDRD) Af Amer 118, Est GFR (MDRD) Non-Af 98, BUN/Creatinine Ratio 43.0 H, Glucose 133 H, Calcium 8.3 L, Total Bilirubin 0.70, AST 34, ALT 61, Alkaline P hosphatase 61, Total Protein 7.3, Albumin 2.4 L, Globulin 4.9 H, Albumin/Globulin Ratio 0.5 L Micro: Microbiology 01/30/21 08:00 Sputum, Expectorated/Coughed Gram Stain - Final 01/30/21 08:00 Sputum, Expectorated/Coughed Respiratory Culture - Preliminary Meth. resistant Staph. aureus Streptococcus pneumoniae Physical Exam Const alert General Appearance: cooperative, ill appearing and on BiPAP Nutritional Appearance: obese HEENT normocephalic and head/scalp atraumatic Eyes PERRL, EOMs intact bilaterally and conjunctivae normal Neck supple General: trachea midline Chest inspection of chest normal Resp Effort and Inspection: tachypneic Auscultation: diminished lung sounds; Negative for rales, rhonchi or wheezes Cardio regular rate, regular rhythm, S1 normal heart sound and S2 normal heart sound GI normal to inspection, nondistended, normoactive bowel sounds Extremity no clubbing, cyanosis or edema Skin no rashes or lesions noted Neuro moves all extremities and no focal motor deficits Psych Mood & Affect: flat affect Charges/Coding Procedures Hospitalists Procedures: 90436 Critial Care 1st Hr
--- NOTE | 2021-02-02 06:59 | PN.HOSP_ITS ---
Subjective Subjective Patient respiratory status deteriorated resulting in patient being intubated this a.m. Objective Data Objective Data Vital Signs: Vital Signs Temp Pulse Resp BP Pulse Ox 98.1 F 67 25 H 129/85 H 90 02/02/21 03:00 02/02/21 06:00 02/02/21 06:00 02/02/21 06:00 02/02/21 06:00 Oxygen Flow Rate (L/min) 60 Oxygen Delivery Method Bi-pap Weight: 99.6 kg Body Mass Index (BMI) 32.0 Intake & Output: Intake and Output for Last 24 Hours 01/31/21 02/01/21 02/02/21 23:59 23:59 23:59 Intake Total 1101.06 / 1101.06 1769.84 / 1889.84 370 / 370 Output Total 1700 / 1700 1050 / 1050 1175 / 1175 Balance -598.94 / -598.94 719.84 / 839.84 -805 / -805 Lab / Micro Data Result Diagrams: 02/02/21 03:00 02/02/21 03:00 Labs: Laboratory Results - last 24 hr 02/02/21 03:00: WBC 8.6, RBC 4.47 L, Hgb 12.7 L, Hct 38.9 L, MCV 87.0, MCH 28.4, MCHC 32.6, RDW Std Deviation 39.8, RDW Coeff of Reyes 12.4, Plt Count 354, MPV 9.5, Immature Gran % (Auto) 0.900, Neut % (Auto) 85.8 H, Lymph % (Auto) 8.8 L, [place] % (Auto) 4.3, Eos % (Auto) 0.0, Baso % (Auto) 0.2, Absolute Neuts (auto) 7.4, Absolute Lymphs (auto) 0.76 L, Nucleated RBC % 0 02/02/21 03:00: Sodium 140, Potassium 3.5, Chloride 105, Carbon Dioxide 29.0, Anion Gap 6, BUN 37 H, Creatinine 0.86, Estim Creat Clear Calc 100.21, Est GFR (MDRD) Af Amer 118, Est GFR (MDRD) Non-Af 98, BUN/Creatinine Ratio 43.0 H, Glucose 133 H, Calcium 8.3 L, Total Bilirubin 0.70, AST 34, ALT 61, Alkaline Phosphatase 61, Total Protein 7.3, Albumin 2.4 L, Globulin 4.9 H, Albumin/Globulin Ratio 0.5 L Micro: Microbiology 01/30/21 08:00 Sputum, Expectorated/Coughed Gram Stain - Final 01/30/21 08:00 Sputum, Expectorated/Coughed Respiratory Culture - Preliminary Meth. resistant Staph. aureus Streptococcus pneumoniae Physical Exam Narrative GENERAL: On the vent HEENT: Atraumatic; EYES; Anicteric, Normal Conjunctiva NECK; supple, normal thyroid, RESPIRATORY: Diminished to auscultation CARDIOVASCULAR: Regular S1 S2, GI: soft, normoactive bowel sounds, : No Renal angle tenderness; EXTREMITIES: No edema, no clubbing, MUSCULOSKELETAL: no muscle waisting NEURO: On the vent SKIN: No Rash Assessment & Plan Assessment/Plan (1) Acute respiratory failure with hypoxemia: (2) Pneumonia due to COVID-19 virus: PLAN: Patient is a 55-year-old gentleman unvaccinated against COVID-19 who was transferred from an outside hospital with progressive shortness of breath. An assessment of acute hypoxic respiratory failure secondary to SARS-CoV-2 pneumonia made admitted to regular nursing floor for further management 1. Acute hypoxic respiratory failure secondary to SARS-CoV-2 pneumonia -Admitted to regular nursing floor started on noninvasive ventilation Airvo with 15 L with O2 of 55% -currently being titrated to keep saturation greater than 90. Patient was started on remdesivir as well as Decadron on admission. In view of patient increasing oxygen requirement consult was placed to ID for consideration for baricitinib. Consult was also placed to pulmonary medicine -01/31/2021; Patient was transferred to the intensive care unit due to worsening respiratory symptoms. Currently on BiPAP with Precedex. Patient was found to be bradycardic thought to be side effect of Precedex. Patient was started on baricitinib by ID -02/01/2021; patient seen remains in ICU on BiPAP with no significant improvement in overall condition ?02/02/2021; Patient respiratory status deteriorated resulting in patient being intubated this a.m. 2. Mild hyponatremia ?Secondary to above subsequent monitoring with daily electrolytes ordered 3. Mildly elevated transaminases ?Monitoring with daily CBC and BMP 4. DVT prophylaxis ?SC Lovenox 5. Physical deconditioning - Requested for PT OT eval and social work instructor to assist with discharge planning Charges/Coding Visit Charges Inpatient E&M: 22891 Subs Hosp L3
[2021-02-02] MEDS: Midazolam 2 MG/2 ML Syringe 4 MG IV (08:53)
[2021-02-02] MEDS: Etomidate 20 MG/10 ML Vial IV (08:54)
[2021-02-02] MEDS: Propofol 10MG/Ml 1,000 MG/100 ML Bottle 6 MG CONT INF (09:00)
--- NOTE | 2021-02-02 09:15 | RAD_ITS ---
STUDY: X-RAY CHEST REASON FOR EXAM: Male, 55 years old. ETT and OG placement TECHNIQUE: Single AP portable view of the chest. COMPARISON: None. FINDINGS: The endotracheal tube is in situ. The tip is at 3.5 cm proximal to the nancie. An orogastric tube is seen with the tip in the body of the stomach. EKG electrodes are seen. Patchy infiltrates in the left midlung as well as in the right upper lobe. There is no demonstrated pleural abnormality. Normal size heart. Normal mediastinum and christiano. Normal visualized pulmonary arteries. Normal visualized aortic arch and descending thoracic aorta. There are diffuse degenerative changes of the visualized thoracic spine. Normal visualized ribs, clavicles, and shoulders. There is no demonstrated abnormality of the visualized soft tissue structures of the upper abdomen. RAD/CXR for Line Placement IMPRESSION: Patchy infiltrates in the left mid lung and right upper lobe. The tip of the endotracheal tube is at 3.5 sinus proximal to the nancie. The tip of the orogastric tube is in the body of the stomach. Electronically Signed: Zain Araujo MD at 9:46 EDT , Service support ,
[2021-02-02 09:46] LABS: Allen Test Positive; Base Excess 3 mmol/L (-2 to +2); Bicarbonate 28.7 mmol/L (22-26); Blood Gas Specimen Type ART; FI02 100; Mode AC; O2 Delivery Device Adult Vent; PEEP 15; PO2 42 mmHG (75-100); RR 16; SITE R Radial; SO2 74 % (95-99); Total Carbon Dioxide 30 mmol/L; Vt 450; pCO2 51.4 mmHg (35-45); pH 7.35 (7.35-7.45)
[2021-02-02] MEDS: 0.9% Saline Lock 10 ML Syringe IV (09:55)
[2021-02-02] MEDS: Propofol 10MG/Ml 1,000 MG/100 ML Bottle 29.9 MG CONT INF ×5 (10:12→22:31)
[2021-02-02] MEDS: dexAMETHasone 10 MG/ML Vial 6 MG IV (10:54)
[2021-02-02] MEDS: Enoxaparin 30 MG/0.3 ML Syringe SC ×2 (10:54→19:58)
[2021-02-02 11:46] LABS: CPK Total, Creatine Kinase 43 U/L (39-308); Triglycerides 76 mg/dL
--- NOTE | 2021-02-02 15:19 | PCM.PN.ID ---
Physical Exam Narrative No fever, no events overnight Const Constitutional Narrative: ill appearing Resp Auscultation: diminished lung sounds Cardio regular rate and regular rhythm Skin no rashes or lesions noted ID ID: Route of nutrition/ use of supplements: [] Nutritional Intake: [] IV Site: [] Buckner Catheter: [] Assessment & Plan Assessment/Plan (1) Pneumonia due to COVID-19 virus: PLAN: Covid sx started around 01/20/21. Unvaccinated; recommend vaccine once out of the hospital and out of isolation. Isolate for 20 days. Sputum cx with MRSA and s. pneumo. On dex and remdesivir, cont baricitinib, will start. On vanc/ceftriaxone. Will follow (2) Acute respiratory failure with hypoxemia:
[2021-02-02 15:26] LABS: Allen Test Positive; Base Excess 4 mmol/L (-2 to +2); Bicarbonate 30.6 mmol/L (22-26); Blood Gas Specimen Type ART; FI02 100; Mode AC; O2 Delivery Device Adult Vent; PEEP 15; PO2 61 mmHG (75-100); RR 16; SITE L Radial; SO2 87 % (95-99); Total Carbon Dioxide 33 mmol/L; Vt 450; pCO2 64.1 mmHg (35-45); pH 7.29 (7.35-7.45)
--- NOTE | 2021-02-02 15:49 | NURSING ---
Dr. Wright at bedside preparing to intubate See SONG for medications given -vitals remained stable, intubated successfully at 0856 with positive color change and equal breath sounds. Size 8 tube, 24 lip.
[2021-02-02] MEDS: guaiFENesin 1,200 MG Tablet 1200 MG PO (19:58)
[2021-02-03] VITALS (35 sets, daily range): BP systolic 97–174; BP diastolic 62–106; PULSE 39–126; RESP 16–17; TEMP 35.9–37.1; O2SAT 89–97
[2021-02-03] MEDS: Propofol 10MG/Ml 1,000 MG/100 ML Bottle 29.9 MG CONT INF ×2 (01:52→05:24)
[2021-02-03 04:01] LABS: Absolute Lymphocyte Count 0.52 X10^3/uL (0.83-4.51); Absolute Neutrophil Count 6.6 X10^3/uL (2.0-7.7); Basophil# 0.01 X10^3/uL; Basophil% 0.1 % (0-1); Hematocrit 36.3 % (40-54); Hemoglobin 11.8 g/dL (13.0-16.5); Lymphocyte # 0.52 X10^3/ul (0.83-4.51); Lymphocyte % 6.8 % (19-41); Mean Corp Hgb Conc 32.5 g/dL (32-36); Mean Corpuscular Hgb 28.8 pg (27.0-32.0); Mean Corpuscular Volume 88.5 fL (80-94); Mean Platelet Vol. 9.6 fl (6.2-12.0); Monocyte# 0.42 X10^3/uL; Monocyte% 5.5 % (0-10); NRBC Flagged by Analyzer 0 % (0-5); Neutrophil # 6.61 X10^3/uL (2.7-7.7); Neutrophil % 86.2 % (47-70); POSITIVE DIFFERENTIAL YES; Platelet Count 296 K/mm3 (150-450); RBC Distribution Width CV 12.3 % (11.6-14.6); RBC Distribution Width SD 40.1 fl (35.1-43.9); White Blood Count 7.7 K/mm3 (4.4-11.0)
[2021-02-03 04:06] LABS: Differential Indicated SCAN CRITERIA MET
[2021-02-03 04:18] LABS: ALB/GLOB Ratio 0.4 RATIO (0.9-2.4); AST(SGOT) 19 U/L (15-37); Alanine Aminotransfer ALT/SGPT 42 U/L (16-61); Albumin, Serum 1.9 g/dL (3.2-5.0); Alkaline Phosphatase 46 U/L (45-117); Anion Gap 4 (5-15); BUN 39 mg/dL (7-18); BUN/Creat Ratio 45.4 RATIO (10-20); Calcium,Total 7.9 mg/dL (8.5-10.1); Chloride 107 mmol/L (98-107); Creatinine, Serum 0.86 mg/dL (0.70-1.30); EST Glomerular Filtration Rate 98 mL/min (>60); Est Glom Filt Rate - Afr Amer 119 mL/min (>60); Estimated Creatinine Clearance 100.21 ml/min; Globulin 4.4 g/dL (2.2-4.2); Glucose 128 mg/dL (74-106); Potassium 4.6 mmol/L (3.5-5.1); Protein, Total 6.3 g/dL (6.4-8.2); Sodium Level 143 mmol/L (136-145)
[2021-02-03 04:23] LABS: Differential Comment SCANNED
[2021-02-03 05:51] LABS: Allen Test Positive; Base Excess 5 mmol/L (-2 to +2); Bicarbonate 31.2 mmol/L (22-26); Blood Gas Specimen Type ART; FI02 95; Mode AC; O2 Delivery Device Adult Vent; PEEP 10; PO2 50 mmHG (75-100); RR 16; SITE L Radial; SO2 82 % (95-99); Total Carbon Dioxide 33 mmol/L; Vt 450; pCO2 58.1 mmHg (35-45); pH 7.34 (7.35-7.45)
--- NOTE | 2021-02-03 06:40 | PCM.PN.INT ---
Assessment & Plan Assessment/Plan (1) Pneumonia due to COVID-19 virus: (2) Acute respiratory failure with hypoxemia: PLAN: RECOMMENDATIONS: 1. Continue to wean FiO2 and PEEP to maintain oxygen saturations at or above 90%. 2. Continue current sedation regimen along with cis atracurium. Will attempt to wean paralytic tomorrow. 3. Continue antimicrobials as ordered. 4. Continue Lovenox, baricitinib and Decadron. 5. Diuretic therapy, as needed, to maintain euvolemic state. IMPRESSIONS: 1. Acute hypoxemic respiratory failure secondary to COVID-19 and superimposed pneumococcal/MRSA pneumonia The patient presented to the hospital as a transfer of care from an outside facility with COVID-19 pneumonia and worsening dyspnea/hypoxemia. D-dimer was reportedly within normal limits. The patient was initiated on remdesivir, Decadron and baricitinib, following evaluation by infectious diseases. He was also started on broad-spectrum antimicrobials. Sputum culture was subsequently positive for MRSA and Streptococcus pneumonia. Following multiple days on noninvasive positive pressure ventilatory support, the patient failed to improve from a respiratory perspective and was subsequently intubated on February 02. He will be continued on appropriate sedation along with cis atracurium to prevent ventilator dyssynchrony and coughing. Prone positioning can be entertained if needed. Continue Lovenox as ordered. TIME: 35 minutes of critical care time, independent of procedures, was spent addressing the patient's acute hypoxemic respiratory failure secondary to COVID-19 pneumonia, review of all data and collaboration with care team. Subjective Subjective The patient was seen and examined at the bedside this morning. Events from the last 24 hours have been reviewed. The patient is currently afebrile, hemodynamically stable and maintaining appropriate oxygen saturations on assist control mode mechanical ventilation with an FiO2 requirement of 95% and PEEP of 15. The patient remains sedated on propofol and fentanyl. He is paralyzed on cis atracurium. The patient is currently documented to be overall net -500 mL for the hospital admission. He remains on antimicrobials, Lovenox, Decadron and baricitinib. Liver and renal function remain stable. Objective Data Objective Data The patient's most recent lab work, culture data and imaging studies have all been personally reviewed. Sputum culture is currently demonstrating growth of MRSA and Streptococcus pneumoniae. Vital Signs: Vital Signs Temp Pulse Resp BP Pulse Ox 98.8 F 42 L 16 99/63 93 11/05/21 04:00 02/03/21 06:00 02/03/21 06:00 02/03/21 06:00 02/03/21 06:00 Oxygen Flow Rate (L/min) 100 Oxygen Delivery Method Mechanical Ventilator Weight: 101.3 kg Body Mass Index (BMI) 32.0 Intake & Output: Intake and Output for Last 24 Hours 02/01/21 02/02/21 02/03/21 23:59 23:59 23:59 Intake Total 1769.84 / 1889.84 2476.14 / 2540.94 688.79 / 688.79 Output Total 1050 / 1050 2775 / 2775 400 / 400 Balance 719.84 / 839.84 -298.86 / -234.06 288.79 / 288.79 Lab / Micro Data Attestation: I reviewed the patient's lab results. Result Diagrams: 02/03/21 03:40 02/03/21 03:40 Labs: Laboratory Results - last 24 hr 02/02/21 03:00: Total Creatine Kinase 43, Triglycerides 76 02/03/21 03:40: WBC 7.7, RBC 4.10 L, Hgb 11.8 L, Hct 36.3 L, MCV 88.5, MCH 28.8, MCHC 32.5, RDW Std Deviation 40.1, RDW Coeff of Reyes 12.3, Plt Count 296, MPV 9.6, Immature Gran % (Auto) 1.400 H, Neut % (Auto) 86.2 H, Lymph % (Auto) 6.8 L, [place] % (Auto) 5.5, Eos % (Auto) 0.0, Baso % (Auto) 0.1, Absolute Neuts (auto) 6.6, Absolute Lymphs (auto) 0.52 L, Nucleated RBC % 0, Differential Comment SCANNED 02/03/21 03:40: Sodium 143, Potassium 4.6, Chloride 107, Carbon Dioxide 32.0, Anion Gap 4 L, BUN 39 H, Creatinine 0.86, Estim Creat Clear Calc 100.21, Est GFR (MDRD) Af Amer 119, Est GFR (MDRD) Non-Af 98, BUN/Creatinine Ratio 45.4 H, Glucose 128 H, Calcium 7.9 L, Total Bilirubin 0.20, AST 19, ALT 42, Alkaline Phosphatase 46, Total Protein 6.3 L, Albumin 1.9 L, Globulin 4.4 H, Albumin/Globulin Ratio 0.4 L Micro: Microbiology 02/02/21 09:16 Sputum, Induced/[place] Gram Stain - Final 01/30/21 08:00 Sputum, Expectorated/Coughed Gram Stain - Final 01/30/21 08:00 Sputum, Expectorated/Coughed Respiratory Culture - Final Meth. resistant Staph. aureus Streptococcus pneumoniae ABG Data ABG results: ABG 02/02/21 02/02/21 02/03/21 09:39 15:18 05:44 Specimen Type ART ART ART Sample Site R Radial L Radial L Radial pH 7.35 7.29 L 7.34 L Bicarbonate Actual 28.7 H 30.6 H 31.2 H Total CO2 30 33 33 Base Excess 3 H 4 H 5 H O2 Saturation 74 L 87 L 82 L O2 % 100 100 95 ABG pCO2 51.4 H 64.1 H 58.1 H ABG pO2 42 L 61 L 50 L Terrance Test Positive Positive Positive Respiration Rate 16 16 16 O2 Delivery Device Adult Vent Adult Vent Adult Vent Vent Mode AC AC AC Tidal Volume 450 450 450 POC PEEP 15 15 10 Radiography Diagnostic Testing: Radiology Impression Chest X-Ray 02/02/21 09:15 IMPRESSION: Patchy infiltrates in the left mid lung and right upper lobe. The tip of the endotracheal tube is at 3.5 sinus proximal to the nancie. The tip of the orogastric tube is in the body of the stomach. Electronically Signed: Zain Araujo MD at 9:46 EDT , Service support , Physical Exam Const no apparent distress General Appearance: intubated and patient mechanically ventilated Nutritional Appearance: obese HEENT normocephalic and head/scalp atraumatic Eyes PERRL, EOMs intact bilaterally and conjunctivae normal Neck supple General: trachea midline Chest inspection of chest normal Resp Auscultation: diminished lung sounds; Negative for rales, rhonchi or wheezes Cardio S1 normal heart sound and S2 normal heart sound Rate: bradycardia GI normal to inspection, nondistended, normoactive bowel sounds Extremity no clubbing, cyanosis or edema Skin no rashes or lesions noted Neuro Sensorium / Orientation: sedated on vent Charges/Coding Procedures Hospitalists Procedures: 66507 Critial Care 1st Hr
--- NOTE | 2021-02-03 06:51 | PN.HOSP_ITS ---
Subjective Subjective Patient is seen remains sedated on the vent. Patient is relatively bradycardic attributed to propofol. Sputum cultures 2 days prior demonstrated Meth. resistant Staph. aureus, Streptococcus pneumoniae. Patient remains on broad- spectrum antibiotic therapy with vancomycin as well as ceftriaxone Objective Data Objective Data Vital Signs: Vital Signs Temp Pulse Resp BP Pulse Ox 98.8 F 42 L 16 99/63 93 02/03/21 04:00 02/03/21 06:00 02/03/21 06:00 02/03/21 06:00 02/03/21 06:00 Oxygen Flow Rate (L/min) 100 Oxygen Delivery Method Mechanical Ventilator Weight: 101.3 kg Body Mass Index (BMI) 32.0 Intake & Output: Intake and Output for Last 24 Hours 02/01/21 02/02/21 02/03/21 23:59 23:59 23:59 Intake Total 1769.84 / 1889.84 2476.14 / 2540.94 688.79 / 688.79 Output Total 1050 / 1050 2775 / 2775 400 / 400 Balance 719.84 / 839.84 -298.86 / -234.06 288.79 / 288.79 Lab / Micro Data Result Diagrams: 02/03/21 03:40 02/03/21 03:40 Labs: Laboratory Results - last 24 hr 02/02/21 03:00: Total Creatine Kinase 43, Triglycerides 76 02/03/21 03:40: WBC 7.7, RBC 4.10 L, Hgb 11.8 L, Hct 36.3 L, MCV 88.5, MCH 28.8, MCHC 32.5, RDW Std Deviation 40.1, RDW Coeff of Reyes 12.3, Plt Count 296, MPV 9.6, Immature Gran % (Auto) 1.400 H, Neut % (Auto) 86.2 H, Lymph % (Auto) 6.8 L, [place] % (Auto) 5.5, Eos % (Auto) 0.0, Baso % (Auto) 0.1, Absolute Neuts (auto) 6.6, Absolute Lymphs (auto) 0.52 L, Nucleated RBC % 0, Differential Comment SCANNED 02/03/21 03:40: Sodium 143, Potassium 4.6, Chloride 107, Carbon Dioxide 32.0, Anion Gap 4 L, BUN 39 H, Creatinine 0.86, Estim Creat Clear Calc 100.21, Est GFR (MDRD) Af Amer 119, Est GFR (MDRD) Non-Af 98, BUN/Creatinine Ratio 45.4 H, Glucose 128 H, Calcium 7.9 L, Total Bilirubin 0.20, AST 19, ALT 42, Alkaline Phosphatase 46, Total Protein 6.3 L, Albumin 1.9 L, Globulin 4.4 H, Albumin/Globulin Ratio 0.4 L Micro: Microbiology 02/02/21 09:16 Sputum, Induced/Lukens Gram Stain - Final 01/30/21 08:00 Sputum, Expectorated/Coughed Gram Stain - Final 01/30/21 08:00 Sputum, Expectorated/Coughed Respiratory Culture - Final Meth. resistant Staph. aureus Streptococcus pneumoniae ABG Data ABG results: ABG 02/02/21 02/02/21 02/03/21 09:39 15:18 05:44 Specimen Type ART ART ART Sample Site R Radial L Radial L Radial pH 7.35 7.29 L 7.34 L Bicarbonate Actual 28.7 H 30.6 H 31.2 H Total CO2 30 33 33 Base Excess 3 H 4 H 5 H O2 Saturation 74 L 87 L 82 L O2 % 100 100 95 ABG pCO2 51.4 H 64.1 H 58.1 H ABG pO2 42 L 61 L 50 L Terrance Test Positive Positive Positive Respiration Rate 16 16 16 O2 Delivery Device Adult Vent Adult Vent Adult Vent Vent Mode AC AC AC Tidal Volume 450 450 450 POC PEEP 15 15 10 Radiography Diagnostic Testing: Radiology Impression Chest X-Ray 02/02/21 09:15 IMPRESSION: Patchy infiltrates in the left mid lung and right upper lobe. The tip of the endotracheal tube is at 3.5 sinus proximal to the nancie. The tip of the orogastric tube is in the body of the stomach. Electronically Signed: Zain Araujo MD at 9:46 EDT , Service support , Physical Exam Narrative GENERAL: On the vent HEENT: Atraumatic; EYES; Anicteric, Normal Conjunctiva NECK; supple, normal thyroid, RESPIRATORY: Diminished to auscultation CARDIOVASCULAR: Regular S1 S2, GI: soft, normoactive bowel sounds, : No Renal angle tenderness; EXTREMITIES: No edema, no clubbing, MUSCULOSKELETAL: no muscle waisting NEURO: On the vent SKIN: No Rash Assessment & Plan Assessment/Plan (1) Acute respiratory failure with hypoxemia: (2) Pneumonia due to COVID-19 virus: PLAN: Patient is a 55-year-old gentleman unvaccinated against COVID-19 who was transferred from an outside hospital with progressive shortness of breath. An assessment of acute hypoxic respiratory failure secondary to SARS-CoV-2 p neumonia made admitted to regular nursing floor for further management 1. Acute hypoxic respiratory failure secondary to SARS-CoV-2 pneumonia -Admitted to regular nursing floor started on noninvasive ventilation Airvo with 15 L with O2 of 55% -currently being titrated to keep saturation greater than 90. Patient was started on remdesivir as well as Decadron on admission. In view of patient increasing oxygen requirement consult was placed to ID for consideration for baricitinib. Consult was also placed to pulmonary medicine -01/31/2021; Patient was transferred to the intensive care unit due to worsening respiratory symptoms. Currently on BiPAP with Precedex. Patient was found to be bradycardic thought to be side effect of Precedex. Patient was started on baricitinib by ID -02/01/2021; patient seen remains in ICU on BiPAP with no significant improvement in overall condition ?02/02/2021; Patient respiratory status deteriorated resulting in patient being intubated this a.m. ?02/03/2021 Patient is seen remains sedated on the vent. Patient is relatively bradycardic attributed to propofol. Sputum cultures 2 days prior demonstrated Meth. resistant Staph. aureus, Streptococcus pneumoniae. Patient remains on broad-spectrum antibiotic therapy with vancomycin as well as ceftriaxone 2. Superimposed pneumonia Sputum cultures came back positive for meth. resistant Staph. aureus, St reptococcus pneumoniae. Patient remains on broad-spectrum antibiotic therapy with vancomycin and Rocephin 3. Mildly elevated transaminases ?Monitoring with daily CBC and BMP 4. Mild hyponatremia ?Secondary to above subsequent monitoring with daily electrolytes ordered ?02/03/2021; hyponatremia resolved 5. Physical deconditioning - Requested for PT OT eval and pediatric social worker to assist with discharge planning 6. DVT prophylaxis ?SC Lovenox Charges/Coding Visit Charges Inpatient E&M: 39674 [facility] Hosp L3
[2021-02-03] MEDS: Propofol 10MG/Ml 1,000 MG/100 ML Bottle 23.9 MG CONT INF (08:05)
[2021-02-03 09:39] LABS: Vancomycin, Trough Level 12.6 ug/mL (5.0-15.0)
[2021-02-03] MEDS: Enoxaparin 30 MG/0.3 ML Syringe SC ×2 (10:22→21:25)
[2021-02-03] MEDS: dexAMETHasone 10 MG/ML Vial 6 MG IV (10:22)
--- NOTE | 2021-02-03 11:00 | PCM.RX.CS ---
Consult Pharmacy has been consulted to manage selected antiobiotic: Vancomycin Type of Consult: Follow-up Suspected Infection: Pneumonia Prior Doses of Antibiotics Received/Current Regimen: currently on vanc 2000mg IV q12h Labs: Sodium 143 mmol/L (136-145) 02/03/21 03:40 Potassium 4.6 mmol/L (3.5-5.1) 02/03/21 03:40 Chloride 107 mmol/L (98-107) 02/03/21 03:40 Carbon Dioxide 32.0 mmol/L (21.0-32.0) 02/03/21 03:40 Anion Gap 4 (5-15) L 02/03/21 03:40 BUN 39 mg/dL (7-18) H 02/03/21 03:40 Creatinine 0.86 mg/dL (0.70-1.30) 02/03/21 03:40 Est GFR (MDRD) Af Amer 119 mL/min (>60) 02/03/21 03:40 Est GFR (MDRD) Non-Af 98 mL/min (>60) 02/03/21 03:40 BUN/Creatinine Ratio 45.4 RATIO (10-20) H 02/03/21 03:40 Glucose 128 mg/dL (74-106) H 02/03/21 03:40 Vancomycin Trough 12.6 ug/mL (5.0-15.0) 02/03/21 08:35 Microbiology: Microbiology 02/02/21 09:16 Sputum, Induced/Lukens Gram Stain - Final 01/30/21 08:00 Sputum, Expectorated/Coughed Gram Stain - Final 01/30/21 08:00 Sputum, Expectorated/Coughed Respiratory Culture - Final Meth. resistant Staph. aureus Streptococcus pneumoniae Weight used for dosin kg Estimated Creatinine Clearance: 100ml/min Goal Trough: 15-20 mcg/mL Pharmacy Plan for Drug Dosing: The vanc trough drawn this morning (drawn 12 hours after the previous dose) was 12.6. This is below goal range but the patient has only had 4 doses so far and is likely not at steady state yet. Will keep on same dose for now and repeat a trough tomorrow morning after a couple more doses. If the trough is not continuing to go up, may need to consider changing to a vanc dose with a q8h frequency since the patient is at the max dose of 2000mg at the q12h frequency. Pharmacy Service will continue to monitor and adjust dosing as required. Follow-Up Labs: Trough Vancomycin Labs to be done on [date and time ordered]: 02/04/21 07:30
[2021-02-03] MEDS: Propofol 10MG/Ml 1,000 MG/100 ML Bottle 20.9 MG CONT INF (12:17)
--- NOTE | 2021-02-03 12:48 | CASEMGMT ---
Social Work SW placed call to pt Amarilis to offer support. Amarilis confirms that she has support system of mother and friends. Amarilis tearful throughout conversation. Pt does have several grown children and also four children under from age 10-17. Amarilis is appreciative of medical updates from nursing. SW will continue to remain available as needs arise. NALLELY Bright
[2021-02-03] MEDS: TITRATION PARAMETER CHANGE 1 EACH IV (13:50)
[2021-02-03] MEDS: Propofol 10MG/Ml 1,000 MG/100 ML Bottle 21.3 MG CONT INF (16:41)
[2021-02-03] MEDS: 0.9% Saline Lock 10 ML Syringe IV (21:24)
[2021-02-03] MEDS: Propofol 10MG/Ml 1,000 MG/100 ML Bottle 18.2 MG CONT INF (21:47)
[2021-02-03] MEDS: Chlorhexidine 480 ML 15 ML PO (22:51)
[2021-02-04] VITALS (35 sets, daily range): BP systolic 103–176; BP diastolic 61–95; PULSE 41–110; RESP 16–23; TEMP 36.4–36.9; O2SAT 86–95
[2021-02-04] MEDS: TITRATION PARAMETER CHANGE 1 EACH IV (02:49)
[2021-02-04] MEDS: Propofol 10MG/Ml 1,000 MG/100 ML Bottle 18.4 MG CONT INF ×3 (03:16→19:23)
[2021-02-04] MEDS: CHLORHEXIDINE GLUC 2% CLOTH 1 EACH TOWELETTE TOPICAL (04:00)
[2021-02-04 04:29] LABS: Absolute Lymphocyte Count 0.63 X10^3/uL (0.83-4.51); Absolute Neutrophil Count 11.1 X10^3/uL (2.0-7.7); Basophil# 0.01 X10^3/uL; Basophil% 0.1 % (0-1); Eosinophil# 0.01 X10^3/uL; Eosinophils% 0.1 % (0-5); Hematocrit 34.9 % (40-54); Hemoglobin 11.1 g/dL (13.0-16.5); Lymphocyte # 0.63 X10^3/ul (0.83-4.51); Mean Corp Hgb Conc 31.8 g/dL (32-36); Mean Corpuscular Hgb 28.8 pg (27.0-32.0); Mean Corpuscular Volume 90.4 fL (80-94); Mean Platelet Vol. 9.8 fl (6.2-12.0); Monocyte% 5.6 % (0-10); NRBC Flagged by Analyzer 0 % (0-5); Neutrophil # 11.12 X10^3/uL (2.7-7.7); Neutrophil % 88.1 % (47-70); Platelet Count 359 K/mm3 (150-450); RBC Distribution Width CV 12.3 % (11.6-14.6); RBC Distribution Width SD 40.1 fl (35.1-43.9); Red Blood Count 3.86 M/mm3 (4.6-6.2); White Blood Count 12.6 K/mm3 (4.4-11.0)
[2021-02-04 04:59] LABS: ALB/GLOB Ratio 0.4 RATIO (0.9-2.4); AST(SGOT) 16 U/L (15-37); Alanine Aminotransfer ALT/SGPT 31 U/L (16-61); Albumin, Serum 1.8 g/dL (3.2-5.0); Alkaline Phosphatase 40 U/L (45-117); Anion Gap 4 (5-15); BUN 39 mg/dL (7-18); BUN/Creat Ratio 61.1 RATIO (10-20); Calcium,Total 7.9 mg/dL (8.5-10.1); Chloride 109 mmol/L (98-107); Creatinine, Serum 0.64 mg/dL (0.70-1.30); EST Glomerular Filtration Rate 138 mL/min (>60); Est Glom Filt Rate - Afr Amer 167 mL/min (>60); Estimated Creatinine Clearance 134.66 ml/min; Globulin 4.4 g/dL (2.2-4.2); Glucose 111 mg/dL (74-106); Potassium 4.4 mmol/L (3.5-5.1); Protein, Total 6.2 g/dL (6.4-8.2); Sodium Level 144 mmol/L (136-145)
--- NOTE | 2021-02-04 05:41 | PN.CC_ITS ---
Assessment & Plan Assessment/Plan (1) Pneumonia due to COVID-19 virus: (2) Acute respiratory failure with hypoxemia: PLAN: RECOMMENDATIONS: 1. Continue to wean FiO2 and PEEP to maintain oxygen saturations at or above 90%. 2. Continue current sedation regimen. Attempt to wean cis atracurium today. 3. Continue antimicrobials as ordered. 4. Continue Lovenox, baricitinib and Decadron. 5. Diuretic therapy, as needed, to maintain euvolemic state. IMPRESSIONS: 1. Acute hypoxemic respiratory failure secondary to COVID-19 and superimposed pneumococcal/MRSA pneumonia The patient presented to the hospital as a transfer of care from an outside facility with COVID-19 pneumonia and worsening dyspnea/hypoxemia. D-dimer was reportedly within normal limits. The patient was initiated on remdesivir, Decadron and baricitinib, following evaluation by infectious diseases. He was also started on broad-spectrum antimicrobials. Sputum culture was subsequently positive for MRSA and Streptococcus pneumonia. Following multiple days on non invasive positive pressure ventilatory support, the patient failed to improve from a respiratory perspective and was subsequently intubated on February 02. He will be continued on appropriate sedation. Plan to wean cis atracurium off today. Continue Lovenox as ordered. TIME: 33 minutes of critical care time, independent of procedures, was spent addressing the patient's acute hypoxemic respiratory failure secondary to COVID- 19 pneumonia, review of all data and collaboration with care team. Subjective Subjective The patient was seen and examined at the bedside this morning. Events from the last 24 hours have been reviewed. The patient remains afebrile and hemodynamically stable. He remains on assist control mode of mechanical ventilation with an FiO2 requirement of 75% and PEEP of 15. The patient is currently documented to be overall net even for the hospitalization. Liver and renal function are stable. The patient remains on appropriate antimicrobials, Lovenox, Decadron and baricitinib. He remains sedated on propofol and fentanyl. The patient also remains pharmacologically paralyzed on cis atracurium. Objective Data Objective Data The patient's most recent lab work, culture data and imaging studies have all been personally reviewed. Sputum culture is currently demonstrating growth of MRSA and Streptococcus pneumoniae. Vital Signs: Vital Signs Temp Pulse Resp BP Pulse Ox 98.1 F 72 16 114/72 90 02/04/21 04:00 02/04/21 04:52 02/04/21 04:52 02/04/21 04:00 02/04/21 04:52 Oxygen Flow Rate (L/min) 90 Oxygen Delivery Method Mechanical Ventilator Weight: 102.2 kg Body Mass Index (BMI) 32.0 Intake & Output: Intake and Output for Last 24 Hours 02/02/21 02/03/21 02/04/21 23:59 23:59 23:59 Intake Total 2476.14 / 2540.94 2940.10 / 2963.78 313.79 / 313.79 Output Total 2775 / 2775 1675 / 1875 800 / 800 Balance -298.86 / -234.06 1265.10 / 1088.78 -486.21 / -486.21 Lab / Micro Data Attestation: I reviewed the patient's lab results. Result Diagrams: 02/04/21 03:50 02/04/21 03:50 Labs: Laboratory Results - last 24 hr 02/03/21 08:35: Vancomycin Trough 12.6 02/04/21 03:50: WBC 12.6 H, RBC 3.86 L, Hgb 11.1 L, Hct 34.9 L, MCV 90.4, MCH 28.8, MCHC 31.8 L, RDW Std Deviation 40.1, RDW Coeff of Reyes 12.3, Plt Count 359, MPV 9.8, Immature Gran % (Auto) 1.100 H, Neut % (Auto) 88.1 H, Lymph % (Auto) 5.0 L, [place] % (Auto) 5.6, Eos % (Auto) 0.1, Baso % (Auto) 0.1, Absolute Neuts (auto) 11.1 H, Absolute Lymphs (auto) 0.63 L, Nucleated RBC % 0 02/04/21 03:50: Sodium 144, Potassium 4.4, Chloride 109 H, Carbon Dioxide 31.0, Anion Gap 4 L, BUN 39 H, Creatinine 0.64 L, Estim Creat Clear Calc 134.66, Est GFR (MDRD) Af Amer 167, Est GFR (MDRD) Non-Af 138, BUN/Creatinine Ratio 61.1 H, Glucose 111 H, Calcium 7.9 L, Total Bilirubin 0.30, AST 16, ALT 31, Alkaline Phosphatase 40 L, Total Protein 6.2 L, Albumin 1.8 L, Globulin 4.4 H, Albumin/Globulin Ratio 0.4 L Micro: Microbiology 02/02/21 09:16 Sputum, Induced/Lukens Gram Stain - Final 02/02/21 09:16 Sputum, Induced/Lukens Respiratory Culture - Preliminary Staphylococcus aureus 01/30/21 08:00 Sputum, Expectorated/Coughed Gram Stain - Final 01/30/21 08:00 Sputum, Expectorated/Coughed Respiratory Culture - Final Meth. resistant Staph. aureus Streptococcus pneumoniae ABG Data ABG results: ABG 02/03/21 05:44 Specimen Type ART Sample Site L Radial pH 7.34 L Bicarbonate Actual 31.2 H Total CO2 33 Base Excess 5 H O2 Saturation 82 L O2 % 95 ABG pCO2 58.1 H ABG pO2 50 L Terrance Test Positive Respiration Rate 16 O2 Delivery Device Adult Vent Vent Mode AC Tidal Volume 450 POC PEEP 10 Physical Exam Const no apparent distress General Appearance: intubated and patient mechanically ventilated Nutritional Appearance: obese HEENT normocephalic and head/scalp atraumatic Eyes PERRL, EOMs intact bilaterally and conjunctivae normal Neck supple General: trachea midline Chest inspection of chest normal Resp Auscultation: diminished lung sounds; Negative for rales, rhonchi or wheezes Cardio S1 normal heart sound and S2 normal heart sound Rate: bradycardia GI normal to inspection, nondistended, normoactive bowel sounds Extremity no clubbing, cyanosis or edema Skin no rashes or lesions noted Neuro Sensorium / Orientation: sedated on vent Charges/Coding Procedures Hospitalists Procedures: [id number] Critial Care 1st Hr
[2021-02-04] MEDS: Propofol 10MG/Ml 1,000 MG/100 ML Bottle 21.5 MG CONT INF ×2 (06:24→14:28)
--- NOTE | 2021-02-04 07:07 | PCM.PN.HOSP ---
Subjective Subjective Patient seen remains on the vent. Currently paralyzed with cisatracurium. Objective Data Objective Data Vital Signs: Vital Signs Temp Pulse Resp BP Pulse Ox 98.1 F 93 16 141/78 H 91 02/04/21 04:00 02/04/21 06:53 02/04/21 06:53 02/04/21 06:00 02/04/21 06:53 Oxygen Flow Rate (L/min) 90 Oxygen Delivery Method Mechanical Ventilator Weight: 102.2 kg Body Mass Index (BMI) 32.0 Intake & Output: Intake and Output for Last 24 Hours 02/02/21 02/03/21 02/04/21 23:59 23:59 23:59 Intake Total 2476.14 / 2540.94 2940.10 / 2963.78 364.65 / 364.65 Output Total 2775 / 2775 1675 / 1875 975 / 975 Balance -298.86 / -234.06 1265.10 / 1088.78 -610.35 / -610.35 Lab / Micro Data Result Diagrams: 02/04/21 03:50 02/04/21 03:50 Labs: Laboratory Results - last 24 hr 02/03/21 08:35: Vancomycin Trough 12.6 02/04/21 03:50: WBC 12.6 H, RBC 3.86 L, Hgb 11.1 L, Hct 34.9 L, MCV 90.4, MCH 28.8, MCHC 31.8 L, RDW Std Deviation 40.1, RDW Coeff of Reyes 12.3, Plt Count 359, MPV 9.8, Immature Gran % (Auto) 1.100 H, Neut % (Auto) 88.1 H, Lymph % (Auto) 5.0 L, [place] % (Auto) 5.6, Eos % (Auto) 0.1, Baso % (Auto) 0.1, Absolute Neuts (auto) 11.1 H, Absolute Lymphs (auto) 0.63 L, Nucleated RBC % 0 02/04/21 03:50: Sodium 144, Potassium 4.4, Chloride 109 H, Carbon Dioxide 31.0, Anion Gap 4 L, BUN 39 H, Creatinine 0.64 L, Estim Creat Clear Calc 134.66, Est GFR (MDRD) Af Amer 167, Est GFR (MDRD) Non-Af 138, BUN/Creatinine Ratio 61.1 H, Glucose 111 H, Calcium 7.9 L, Total Bilirubin 0.30, AST 16, ALT 31, Alkaline Phosphatase 40 L, Total Protein 6.2 L, Albumin 1.8 L, Globulin 4.4 H, Albumin/Globulin Ratio 0.4 L Micro: Microbiology 02/02/21 09:16 Sputum, Induced/Lukens Gram Stain - Final 02/02/21 09:16 Sputum, Induced/Lukens Respiratory Culture - Preliminary Staphylococcus aureus 01/30/21 08:00 Sputum, Expectorated/Coughed Gram Stain - Final 01/30/21 08:00 Sputum, Expectorated/Coughed Respiratory Culture - Final Meth. resistant Staph. aureus Streptococcus pneumoniae Physical Exam Narrative GENERAL: On the vent HEENT: Atraumatic; EYES; Anicteric, Normal Conjunctiva NECK; supple, normal thyroid, RESPIRATORY: Diminished to auscultation CARDIOVASCULAR: Regular S1 S2, GI: soft, normoactive bowel sounds, : No Renal angle tenderness; EXTREMITIES: No edema, no clubbing, MUSCULOSKELETAL: no muscle waisting NEURO: On the vent SKIN: No Rash Assessment & Plan Assessment/Plan (1) Acute respiratory failure with hypoxemia: (2) Pneumonia due to COVID-19 virus: PLAN: Patient is a 55-year-old gentleman unvaccinated against COVID-19 who was transferred from an outside hospital with progressive shortness of breath. An assessment of acute hypoxic respiratory failure secondary to SARS-CoV-2 pneumonia made admitted to regular nursing floor for further management 1. Acute hypoxic respiratory failure secondary to SARS-CoV-2 pneumonia -Admitted to regular nursing floor started on noninvasive ventilation Airvo with 15 L with O2 of 55% -currently being titrated to keep saturation greater than 90. Patient was started on remdesivir as well as Decadron on admission. In view of patient increasing oxygen requirement consult was placed to ID for consideration for baricitinib. Consult was also placed to pulmonary medicine -01/31/2021; Patient was transferred to the intensive care unit due to worsening respiratory symptoms. Currently on BiPAP with Precedex. Patient was found to be bradycardic thought to be side effect of Precedex. Patient was started on baricitinib by ID -02/01/2021; patient seen remains in ICU on BiPAP with no significant improvement in overall condition ?02/02/2021; Patient respiratory status deteriorated resulting in patient being intubated this a.m. ?02/03/2021 Patient is seen remains sedated on the vent. Patient is relatively bradycardic attributed to propofol. Sputum cultures 2 days prior demonstrated Meth. resistant Staph. aureus, Streptococcus pneumoniae. Patient remains on broad-spectrum antibiotic therapy with vancomycin as well as ceftriaxone -02/05/2009/18/2020; Patient seen remains on the vent. Currently paralyzed with cisatracurium 2. Superimposed pneumonia Sputum cultures came back positive for meth. resistant Staph. aureus, Streptococcus pneumoniae. Patient remains on broad-spectrum antibiotic therapy with vancomycin and Rocephin 3. Mildly elevated transaminases ?Monitoring with daily CBC and BMP 4. Mild hyponatremia ?Secondary to above subsequent monitoring with daily electrolytes ordered ?02/03/2021; hyponatremia resolved 5. Physical deconditioning - Requested for PT OT eval and certified social workers in health care to assist with discharge planning 6. DVT prophylaxis ?ROCIO Mckeon Charges/Coding Visit Charges Inpatient E&M: 20276 [facility]s Hosp L3
[2021-02-04] MEDS: Furosemide 40 MG/4 ML Vial IV ×2 (08:50→17:24)
[2021-02-04] MEDS: dexAMETHasone 10 MG/ML Vial 6 MG IV (08:52)
[2021-02-04] MEDS: Enoxaparin 30 MG/0.3 ML Syringe SC ×2 (08:55→19:55)
[2021-02-04] MEDS: Chlorhexidine 15 ML PO ×2 (09:01→19:55)
[2021-02-04 09:30] LABS: Vancomycin, Trough Level 16.9 ug/mL (5.0-15.0)
[2021-02-04] MEDS: Propofol 10MG/Ml 1,000 MG/100 ML Bottle 30.7 MG CONT INF (09:56)
--- NOTE | 2021-02-04 12:24 | PCM.RX.CS ---
Consult Pharmacy has been consulted to manage selected antiobiotic: Vancomycin Type of Consult: Follow-up Suspected Infection: Pneumonia Prior Doses of Antibiotics Received/Current Regimen: On 2000mg iv q12h. Labs: Sodium 144 mmol/L (136-145) 02/04/21 03:50 Potassium 4.4 mmol/L (3.5-5.1) 02/04/21 03:50 Chloride 109 mmol/L (98-107) H 02/04/21 03:50 Carbon Dioxide 31.0 mmol/L (21.0-32.0) 02/04/21 03:50 Anion Gap 4 (5-15) L 02/04/21 03:50 BUN 39 mg/dL (7-18) H 02/04/21 03:50 Creatinine 0.64 mg/dL (0.70-1.30) L 02/04/21 03:50 Est GFR (MDRD) Af Amer 167 mL/min (>60) 02/04/21 03:50 Est GFR (MDRD) Non-Af 138 mL/min (>60) 02/04/21 03:50 BUN/Creatinine Ratio 61.1 RATIO (10-20) H 02/04/21 03:50 Glucose 111 mg/dL (74-106) H 02/04/21 03:50 Vancomycin Trough 16.9 ug/mL (5.0-15.0) H 02/04/21 08:00 Microbiology: Microbiology 02/02/21 09:16 Sputum, Induced/Lukens Gram Stain - Final 02/02/21 09:16 Sputum, Induced/Lukens Respiratory Culture - Final Meth. resistant Staph. aureus 01/30/21 08:00 Sputum, Expectorated/Coughed Gram Stain - Final 01/30/21 08:00 Sputum, Expectorated/Coughed Respiratory Culture - Final Meth. resistant Staph. aureus Streptococcus pneumoniae Weight used for dosin kg Estimated Creatinine Clearance: 135 ml/min Goal Trough: 15-20 mcg/mL Pharmacy Plan for Drug Dosing: Trough today 16.9 with goal range of 15-20mcg/ml. Will continue same dose and get another trough level on 02.05.21 to watch for level trending upward. Pharmacy Service will continue to monitor and adjust dosing as required. Follow-Up Labs: Trough Vancomycin - 02.05.21@1930 before 2000 dose
[2021-02-04] MEDS: Propofol 10MG/Ml 1,000 MG/100 ML Bottle 24.5 MG CONT INF ×2 (13:21→23:45)
[2021-02-04] MEDS: Senna/Docusate Sodium 1 Tablet 2 TABLET GT (23:44)
[2021-02-05] VITALS (33 sets, daily range): BP systolic 105–137; BP diastolic 60–80; PULSE 45–77; RESP 16–20; TEMP 36.6–38.1; O2SAT 90–95
[2021-02-05] MEDS: Propofol 10MG/Ml 1,000 MG/100 ML Bottle 24.5 MG CONT INF (02:45)
[2021-02-05] MEDS: CHLORHEXIDINE GLUC 2% CLOTH 1 EACH TOWELETTE TOPICAL (03:04)
[2021-02-05 03:40] LABS: Absolute Neutrophil Count 12.8 X10^3/uL (2.0-7.7); Basophil# 0.02 X10^3/uL; Basophil% 0.1 % (0-1); Eosinophils% 0.7 % (0-5); Hematocrit 37.2 % (40-54); Hemoglobin 11.9 g/dL (13.0-16.5); Lymphocyte % 4.2 % (19-41); Mean Corpuscular Hgb 28.8 pg (27.0-32.0); Mean Corpuscular Volume 90.1 fL (80-94); Mean Platelet Vol. 9.3 fl (6.2-12.0); Monocyte# 0.55 X10^3/uL; Monocyte% 3.9 % (0-10); NRBC Flagged by Analyzer 0 % (0-5); Neutrophil # 12.77 X10^3/uL (2.7-7.7); Neutrophil % 89.4 % (47-70); POSITIVE DIFFERENTIAL YES; Platelet Count 418 K/mm3 (150-450); RBC Distribution Width SD 39.8 fl (35.1-43.9); Red Blood Count 4.13 M/mm3 (4.6-6.2); White Blood Count 14.3 K/mm3 (4.4-11.0)
[2021-02-05 03:41] LABS: Differential Indicated SCAN CRITERIA MET
[2021-02-05 03:57] LABS: ALB/GLOB Ratio 0.4 RATIO (0.9-2.4); AST(SGOT) 20 U/L (15-37); Alanine Aminotransfer ALT/SGPT 29 U/L (16-61); Alkaline Phosphatase 39 U/L (45-117); Anion Gap 5 (5-15); BUN 41 mg/dL (7-18); BUN/Creat Ratio 49.6 RATIO (10-20); Chloride 103 mmol/L (98-107); Creatinine, Serum 0.83 mg/dL (0.70-1.30); EST Glomerular Filtration Rate 102 mL/min (>60); Est Glom Filt Rate - Afr Amer 124 mL/min (>60); Estimated Creatinine Clearance 103.83 ml/min; Globulin 4.5 g/dL (2.2-4.2); Glucose 113 mg/dL (74-106); Potassium 3.7 mmol/L (3.5-5.1); Protein, Total 6.5 g/dL (6.4-8.2); Sodium Level 143 mmol/L (136-145)
[2021-02-05 04:13] LABS: Differential Comment SCANNED
[2021-02-05] MEDS: TITRATION PARAMETER CHANGE 1 EACH IV (04:42)
--- NOTE | 2021-02-05 05:22 | PN.CC_ITS ---
Assessment & Plan Assessment/Plan (1) Pneumonia due to COVID-19 virus: (2) Acute respiratory failure with hypoxemia: PLAN: RECOMMENDATIONS: 1. Continue to wean FiO2 and PEEP to maintain oxygen saturations at or above 90%. 2. Continue current sedation regimen. 3. Continue antimicrobials as ordered. 4. Continue Lovenox, baricitinib and Decadron. 5. Diuretic therapy, as needed, to maintain euvolemic state. 6. Start tube feeds today. 7. Continue appropriate GI prophylaxis. IMPRESSIONS: 1. Acute hypoxemic respiratory failure secondary to COVID-19 and superimposed pneumococcal/MRSA pneumonia The patient presented to the hospital as a transfer of care from an outside facility with COVID-19 pneumonia and worsening dyspnea/hypoxemia. D-dimer was reportedly within normal limits. Following multiple days on noninvasive positiv e pressure ventilatory support, the patient failed to improve from a respiratory perspective and was intubated on February 02. He was maintained on paralytics for 48 hours. He has completed a treatment course of remdesivir. He remains on Decadron, baricitinib and Lovenox. The patient also remains on antimicrobials due to MRSA and Streptococcus pneumonia isolated from sputum. Plan to continue to wean FiO2 and PEEP as tolerated for saturations greater than 90%. Tube feeds can be initiated today from my perspective. Continue appropriate GI prophylaxis. Continue intermittent dosing of Lasix, as needed, to maintain euvolemic state. TIME: 32 minutes of critical care time, independent of procedures, was spent addressing the patient's acute hypoxemic respiratory failure secondary to COVID- 19 pneumonia, review of all data and collaboration with care team. ([id number]) Subjective Subjective The patient was seen and examined at the bedside this morning. Events from the last 24 hours have been reviewed. The patient remains afebrile and hemodynamically stable. He remains on assist control mode of mechanical ventilation with an FiO2 requirement of 100% and PEEP of 15. The patient is c urrently documented to be overall net -800 mL for the hospitalization. Liver and renal function are stable. The patient remains on appropriate antimicrobials, Lovenox, Decadron and baricitinib. The patient's paralytic was weaned off completely yesterday. He remains sedated on propofol and fentanyl. Today is vent day #4. Objective Data Objective Data The patient's most recent lab work, culture data and imaging studies have all been personally reviewed. Sputum culture is currently demonstrating growth of MRSA and Streptococcus pneumoniae. Vital Signs: Vital Signs Temp Pulse Resp BP Pulse Ox 97.8 F 61 16 110/69 92 02/05/21 04:00 02/05/21 05:00 02/05/21 05:00 02/05/21 05:00 02/05/21 05:00 Oxygen Flow Rate (L/min) 90 Oxygen Delivery Method Mechanical Ventilator Weight: 99.3 kg Body Mass Index (BMI) 32.0 Intake & Output: Intake and Output for Last 24 Hours 02/03/21 02/04/21 02/05/21 23:59 23:59 22:59 Intake Total 2940.10 / 2963.78 2597.70 / 2616.33 250.41 / 250.41 Output Total 1675 / 1875 3800 / 3800 350 / 350 Balance 1265.10 / 1088.78 -1202.30 / -1183.67 -99.59 / -99.59 Lab / Micro Data Attestation: I reviewed the patient's lab results. Result Diagrams: 02/05/21 03:30 02/05/21 03:30 Labs: Laboratory Results - last 24 hr 02/04/21 08:00: Vancomycin Trough 16.9 H 02/05/21 03:30: WBC 14.3 H, RBC 4.13 L, Hgb 11.9 L, Hct 37.2 L, MCV 90.1, MCH 28.8, MCHC 32.0, RDW Std Deviation 39.8, RDW Coeff of Reyes 12.0, Plt Count 418, MPV 9.3, Immature Gran % (Auto) 1.700 H, Neut % (Auto) 89.4 H, Lymph % (Auto) 4.2 L, [place] % (Auto) 3.9, Eos % (Auto) 0.7, Baso % (Auto) 0.1, Absolute Neuts (auto) 12.8 H, Absolute Lymphs (auto) 0.60 L, Nucleated RBC % 0, Differential Comment SCANNED 02/05/21 03:30: Sodium 143, Potassium 3.7, Chloride 103, Carbon Dioxide 35.0 H, Anion Gap 5, BUN 41 H, Creatinine 0.83, Estim Creat Clear Calc 103.83, Est GFR (MDRD) Af Amer 124, Est GFR (MDRD) Non-Af 102, BUN/Creatinine Ratio 49.6 H, Glucose 113 H, Calcium 8.0 L, Total Bilirubin 0.60, AST 20, ALT 29, Alkaline Phosphatase 39 L, Total Protein 6.5, Albumin 2.0 L, Globulin 4.5 H, Albumin/Globulin Ratio 0.4 L Micro: Microbiology 02/02/21 09:16 Sputum, Induced/Lukens Gram Stain - Final 02/02/21 09:16 Sputum, Induced/Lukens Respiratory Culture - Final Meth. resistant Staph. aureus 01/30/21 08:00 Sputum, Expectorated/Coughed Gram Stain - Final 01/30/21 08:00 Sputum, Expectorated/Coughed Respiratory Culture - Final Meth. resistant Staph. aureus Streptococcus pneumoniae Physical Exam Const no apparent distress Constitutional Narrative: No ventilator dyssynchrony noted. General Appearance: intubated and patient mechanically ventilated Nutritional Appearance: obese HEENT normocephalic and head/scalp atraumatic Eyes PERRL, EOMs intact bilaterally and conjunctivae normal Neck supple General: trachea midline Chest inspection of chest normal Resp Auscultation: diminished lung sounds; Negative for rales, rhonchi or wheezes Cardio regular rate, regular rhythm, S1 normal heart sound and S2 normal heart sound GI normal to inspection, nondistended, normoactive bowel sounds Extremity no clubbing, cyanosis or edema Skin no rashes or lesions noted Neuro Sensorium / Orientation: sedated on vent Charges/Coding Procedures Hospitalists Procedures: 09312 Critial Care 1st Hr
[2021-02-05] MEDS: Propofol 10MG/Ml 1,000 MG/100 ML Bottle 26.8 MG CONT INF ×6 (06:11→21:59)
--- NOTE | 2021-02-05 07:15 | PN.HOSP_ITS ---
Subjective Subjective Patient seen remains on the vent with current settings of FiO2 of 100% with PEEP of 15. Objective Data Objective Data Vital Signs: Vital Signs Temp Pulse Resp BP Pulse Ox 97.8 F 60 17 112/71 94 02/05/21 04:00 02/05/21 07:00 02/05/21 07:00 02/05/21 06:00 02/05/21 07:00 Oxygen Flow Rate (L/min) 90 Oxygen Delivery Method Mechanical Ventilator Weight: 99.3 kg Body Mass Index (BMI) 32.0 Intake & Output: Intake and Output for Last 24 Hours 02/03/21 02/04/21 02/05/21 23:59 23:59 22:59 Intake Total 2940.10 / 2963.78 2597.70 / 2616.33 308.58 / 308.58 Output Total 1675 / 1875 3800 / 3800 575 / 575 Balance 1265.10 / 1088.78 -1202.30 / -1183.67 -266.42 / -266.42 Lab / Micro Data Result Diagrams: 02/05/21 03:30 02/05/21 03:30 Labs: Laboratory Results - last 24 hr 02/04/21 08:00: Vancomycin Trough 16.9 H 02/05/21 03:30: WBC 14.3 H, RBC 4.13 L, Hgb 11.9 L, Hct 37.2 L, MCV 90.1, MCH 28.8, MCHC 32.0, RDW Std Deviation 39.8, RDW Coeff of Reyes 12.0, Plt Count 418, MPV 9.3, Immature Gran % (Auto) 1.700 H, Neut % (Auto) 89.4 H, Lymph % (Auto) 4.2 L, [place] % (Auto) 3.9, Eos % (Auto) 0.7, Baso % (Auto) 0.1, Absolute Neuts (auto) 12.8 H, Absolute Lymphs (auto) 0.60 L, Nucleated RBC % 0, Differential Comment SCANNED 02/05/21 03:30: Sodium 143, Potassium 3.7, Chloride 103, Carbon Dioxide 35.0 H, Anion Gap 5, BUN 41 H, Creatinine 0.83, Estim Creat Clear Calc 103.83, Est GFR (MDRD) Af Amer 124, Est GFR (MDRD) Non-Af 102, BUN/Creatinine Ratio 49.6 H, Glucose 113 H, Calcium 8.0 L, Total Bilirubin 0.60, AST 20, ALT 29, Alkaline Phosphatase 39 L, Total Protein 6.5, Albumin 2.0 L, Globulin 4.5 H, Albumin/Globulin Ratio 0.4 L Micro: Microbiology 02/02/21 09:16 Sputum, Induced/Lukens Gram Stain - Final 02/02/21 09:16 Sputum, Induced/Lukens Respiratory Culture - Final Meth. resistant Staph. aureus 01/30/21 08:00 Sputum, Expectorated/Coughed Gram Stain - Final 01/30/21 08:00 Sputum, Expectorated/Coughed Respiratory Culture - Final Meth. resistant Staph. aureus Streptococcus pneumoniae Physical Exam Narrative GENERAL: On the vent HEENT: Atraumatic; EYES; Anicteric, Normal Conjunctiva NECK; supple, normal thyroid, RESPIRATORY: Diminished to auscultation CARDIOVASCULAR: Regular S1 S2, GI: soft, normoactive bowel sounds, : No Renal angle tenderness; EXTREMITIES: No edema, no clubbing, MUSCULOSKELETAL: no muscle waisting NEURO: On the vent SKIN: No Rash Assessment & Plan Assessment/Plan (1) Acute respiratory failure with hypoxemia: (2) Pneumonia due to COVID-19 virus: PLAN: Patient is a 55-year-old gentleman unvaccinated against COVID-19 who was transferred from an outside hospital with progressive shortness of breath. An assessment of acute hypoxic respiratory failure secondary to SARS-CoV-2 pneumonia made admitted to regular nursing floor for further management 1. Acute hypoxic respiratory failure secondary to SARS-CoV-2 pneumonia -Admitted to regular nursing floor started on noninvasive ventilation Airvo with 15 L with O2 of 55% -currently being titrated to keep saturation greater than 90. Patient was started on remdesivir as well as Decadron on admission. In view of patient increasing oxygen requirement consult was placed to ID for consideration for baricitinib. Consult was also placed to pulmonary medicine -01/31/2021; Patient was transferred to the intensive care unit due to worsening respiratory symptoms. Currently on BiPAP with Precedex. Patient was found to be bradycardic thought to be side effect of Precedex. Patient was started on baricitinib by ID -02/01/2021; patient seen remains in ICU on BiPAP with no significant improvem ent in overall condition ?02/02/2021; Patient respiratory status deteriorated resulting in patient being intubated this a.m. ?02/03/2021 Patient is seen remains sedated on the vent. Patient is relatively bradycardic attributed to propofol. Sputum cultures 2 days prior demonstrated Meth. resistant Staph. aureus, Streptococcus pneumoniae. Patient remains on broad-spectrum antibiotic therapy with vancomycin as well as ceftriaxone -02/05/2009/18/2020; Patient seen remains on the vent. Currently paralyzed with cisatracurium ?02/05/2021; patient remains on vent. Current vent settings AC FiO2 100% and PEEP of 15 2. Superimposed pneumonia Sputum cultures came back positive for meth. resistant Staph. aureus, Streptococcus pneumoniae. Patient remains on broad-spectrum antibiotic therapy with vancomycin and Rocephin 3. Mildly elevated transaminases ?Monitoring with daily CBC and BMP 4. Mild hyponatremia ?Secondary to above subsequent monitoring with daily electrolytes ordered ?02/03/2021; hyponatremia resolved 5. Physical deconditioning - Requested for PT OT eval and social service liaison to assist with discharge planning 6. DVT prophylaxis ?SC Alexandrax Charges/Coding Visit Charges Inpatient E&M: 45156 Subs Hosp L3
[2021-02-05] MEDS: Chlorhexidine 15 ML PO ×2 (08:02→20:45)
[2021-02-05] MEDS: Enoxaparin 30 MG/0.3 ML Syringe SC ×2 (08:03→20:45)
[2021-02-05] MEDS: dexAMETHasone 10 MG/ML Vial 6 MG IV (08:04)
[2021-02-05] MEDS: Vital AF 1.2 Cal Liquid 1,000 ML 20 ML GT (11:55)
[2021-02-05] MEDS: Acetaminophen 650 MG/20 ML UDC GT (20:44)
[2021-02-05] MEDS: Vital AF 1.2 Cal Liquid 1,000 ML 35 ML GT (21:00)
[2021-02-05 22:21] LABS: Vancomycin, Trough Level 10.4 ug/mL (5.0-15.0)
[2021-02-06] VITALS (36 sets, daily range): BP systolic 104–160; BP diastolic 66–100; PULSE 44–92; RESP 15–27; TEMP 36.6–37.7; O2SAT 79–95
--- NOTE | 2021-02-06 00:51 | PCM.RX.CS ---
Consult Pharmacy has been consulted to manage selected antiobiotic: Vancomycin Type of Consult: Follow-up Labs: Sodium 143 mmol/L (136-145) 02/05/21 03:30 Potassium 3.7 mmol/L (3.5-5.1) 02/05/21 03:30 Chloride 103 mmol/L (98-107) 02/05/21 03:30 Carbon Dioxide 35.0 mmol/L (21.0-32.0) H 02/05/21 03:30 Anion Gap 5 (5-15) 02/05/21 03:30 BUN 41 mg/dL (7-18) H 02/05/21 03:30 Creatinine 0.83 mg/dL (0.70-1.30) 02/05/21 03:30 Est GFR (MDRD) Af Amer 124 mL/min (>60) 02/05/21 03:30 Est GFR (MDRD) Non-Af 102 mL/min (>60) 02/05/21 03:30 BUN/Creatinine Ratio 49.6 RATIO (10-20) H 02/05/21 03:30 Glucose 113 mg/dL (74-106) H 02/05/21 03:30 Vancomycin Trough 10.4 ug/mL (5.0-15.0) 02/05/21 21:05 Microbiology: Microbiology 02/02/21 09:16 Sputum, Induced/Lukens Gram Stain - Final 02/02/21 09:16 Sputum, Induced/Lukens Respiratory Culture - Final Meth. resistant Staph. aureus 01/30/21 08:00 Sputum, Expectorated/Coughed Gram Stain - Final 01/30/21 08:00 Sputum, Expectorated/Coughed Respiratory Culture - Final Meth. resistant Staph. aureus Streptococcus pneumoniae Goal Trough: 15-20 mcg/mL Pharmacy Plan for Drug Dosing: Pharmacy Service will continue to monitor and adjust dosing as required. TROUGH 10.4 AT 13 HOURS, SCr INCREASED TO 0.83 FROM 0.64. NO CHANGE, FOLLOW UP TROUGH IN 24 HOURS Follow-Up Labs: Trough Vancomycin Labs to be done on [date and time ordered]: 02/06 @ 4238
[2021-02-06] MEDS: Propofol 10MG/Ml 1,000 MG/100 ML Bottle 26.8 MG CONT INF ×2 (01:05→04:49)
[2021-02-06] MEDS: CHLORHEXIDINE GLUC 2% CLOTH 1 EACH TOWELETTE TOPICAL (02:45)
[2021-02-06 02:58] LABS: Absolute Lymphocyte Count 0.77 X10^3/uL (0.83-4.51); Absolute Neutrophil Count 14.5 X10^3/uL (2.0-7.7); Basophil# 0.05 X10^3/uL; Basophil% 0.3 % (0-1); Eosinophil# 0.14 X10^3/uL; Eosinophils% 0.8 % (0-5); Hematocrit 37.3 % (40-54); Hemoglobin 11.8 g/dL (13.0-16.5); Lymphocyte # 0.77 X10^3/ul (0.83-4.51); Lymphocyte % 4.7 % (19-41); Mean Corp Hgb Conc 31.6 g/dL (32-36); Mean Corpuscular Hgb 28.4 pg (27.0-32.0); Mean Corpuscular Volume 89.9 fL (80-94); Mean Platelet Vol. 9.4 fl (6.2-12.0); Monocyte# 0.51 X10^3/uL; Monocyte% 3.1 % (0-10); NRBC Flagged by Analyzer 0 % (0-5); Neutrophil # 14.48 X10^3/uL (2.7-7.7); Neutrophil % 87.5 % (47-70); Platelet Count 426 K/mm3 (150-450); RBC Distribution Width SD 39.5 fl (35.1-43.9); Red Blood Count 4.15 M/mm3 (4.6-6.2); White Blood Count 16.6 K/mm3 (4.4-11.0)
[2021-02-06 03:15] LABS: ALB/GLOB Ratio 0.4 RATIO (0.9-2.4); AST(SGOT) 26 U/L (15-37); Alanine Aminotransfer ALT/SGPT 30 U/L (16-61); Albumin, Serum 1.8 g/dL (3.2-5.0); Alkaline Phosphatase 41 U/L (45-117); Anion Gap 4 (5-15); BUN 39 mg/dL (7-18); BUN/Creat Ratio 54.5 RATIO (10-20); Calcium,Total 8.2 mg/dL (8.5-10.1); Chloride 105 mmol/L (98-107); Creatinine, Serum 0.72 mg/dL (0.70-1.30); EST Glomerular Filtration Rate 121 mL/min (>60); Est Glom Filt Rate - Afr Amer 146 mL/min (>60); Globulin 4.8 g/dL (2.2-4.2); Glucose 130 mg/dL (74-106); Potassium 4.2 mmol/L (3.5-5.1); Protein, Total 6.6 g/dL (6.4-8.2); Sodium Level 143 mmol/L (136-145)
--- NOTE | 2021-02-06 06:05 | RAD_ITS ---
STUDY: X-RAY CHEST REASON FOR EXAM: Male, 55 years old. Respiratory Failure TECHNIQUE: Single AP portable view of the chest. COMPARISON: Comparison is made with prior study dated 02/02/2021. FINDINGS: An endotracheal tube is in situ. The tip is at 2.7 cm proximal to the nancie. Endogastric tube is present with the tip in the body of the stomach. EKG electrodes are seen. Since prior study, there has been progressive pulmonary infiltrates in both lungs worse in the right hemithorax with a preferential peripheral distribution. Pneumonitis associated with Covid should be ruled out. There is no demonstrated pleural abnormality. Normal size heart. Normal mediastinum and christiano. Normal visualized pulmonary arteries. Normal visualized aortic arch and descending thoracic aorta. There are diffuse degenerative changes of the visualized thoracic spine. Normal visualized ribs, clavicles, and shoulders. There is no demonstrated abnormality of the visualized soft tissue structures of the upper abdomen. RAD/Chest 1 View (Portable) IMPRESSION: Progressive bilateral pulmonary infiltrates worse in the right hemithorax. Electronically Signed: Zain Araujo MD at 8:39 EST , Service support ,
--- NOTE | 2021-02-06 06:46 | PN.CC_ITS ---
Assessment & Plan Assessment/Plan (1) Pneumonia due to COVID-19 virus: (2) Acute respiratory failure with hypoxemia: PLAN: RECOMMENDATIONS: 1. Continue to wean FiO2 and PEEP to maintain oxygen saturations at or above 90%. 2. Continue current sedation regimen. 3. Continue antimicrobials as ordered. 4. Continue Lovenox (prophylactic), baricitinib (02/14/2021) and Decadron (02/09/2021). 5. Diuretic therapy, as needed, to maintain euvolemic state. 6. Hold tube feeds at current rate. Initiate aggressive bowel regimen 7. Continue appropriate GI prophylaxis. 8. Potential attempt at proning later today IMPRESSIONS: 1. Acute hypoxemic respiratory failure secondary to COVID-19 and superimposed pneumococcal/MRSA pneumonia The patient presented to the hospital as a transfer of care from an outside facility with COVID-19 pneumonia and worsening dyspnea/hypoxemia. D- dimer was reportedly within normal limits. Following multiple days on noninvasive positive pressure ventilatory support, the patient failed to improve from a respiratory perspective and was intubated on February 02. He was maintained on paralytics for 48 hours. He has completed a treatment course of remdesivir. He remains on Decadron, baricitinib and Lovenox. The patient also remains on antimicrobials due to MRSA and Streptococcus pneumonia isolated from sputum. Anticipate 10-day course for each of the antibiotics. Plan to continue to wean FiO2 and PEEP as tolerated for saturations greater than 90%. Tube feeds can be held at current rate today from my perspective. Initiate aggressive bowel regimen continue appropriate GI prophylaxis. Continue intermittent dosing of Lasix, as needed, to maintain euvolemic state. TIME: 33 minutes of critical care time, independent of procedures, was spent addressing the patient's acute hypoxemic respiratory failure secondary to COVID- 19 pneumonia, review of all data and collaboration with care team. (5:20 AM to 6:20 AM) Subjective Subjective The patient did okay overnight. Tube feeds have been held constant secondary to higher residuals. Patient did have a mild fever overnight, but no hemodynamic instability. Patient has not been able to be weaned on FiO2 or PEEP. Objective Data Objective Data Vital Signs: Vital Signs Temp Pulse Resp BP Pulse Ox 37.4 C H 62 20 H 116/75 90 02/06/21 04:00 02/06/21 06:42 02/06/21 06:42 02/06/21 06:00 02/06/21 06:42 Oxygen Flow Rate (L/min) 90 Oxygen Delivery Method Mechanical Ventilator Weight: 101.1 kg Body Mass Index (BMI) 32.0 Intake & Output: Intake and Output for Last 24 Hours 02/05/21 02/05/21 02/06/21 00:59 23:59 23:59 Intake Total 1170.24 / 1170.24 Output Total 750 / 750 Balance 420.24 / 420.24 Lab / Micro Data Result Diagrams: 02/06/21 02:40 02/06/21 02:40 Labs: Laboratory Results - last 24 hr 02/05/21 21:05: Vancomycin Trough 10.4 02/06/21 02:40: WBC 16.6 H, RBC 4.15 L, Hgb 11.8 L, Hct 37.3 L, MCV 89.9, MCH 28.4, MCHC 31.6 L, RDW Std Deviation 39.5, RDW Coeff of Reyes 12.0, Plt Count 426, MPV 9.4, Immature Gran % (Auto) 3.600 H, Neut % (Auto) 87.5 H, Lymph % (Auto) 4.7 L, [place] % (Auto) 3.1, Eos % (Auto) 0.8, Baso % (Auto) 0.3, Absolute Neuts (auto) 14.5 H, Absolute Lymphs (auto) 0.77 L, Nucleated RBC % 0 02/06/21 02:40: Sodium 143, Potassium 4.2, Chloride 105, Carbon Dioxide 34.0 H, Anion Gap 4 L, BUN 39 H, Creatinine 0.72, Estim Creat Clear Calc 119.70, Est GFR (MDRD) Af Amer 146, Est GFR (MDRD) Non-Af 121, BUN/Creatinine Ratio 54.5 H, Glucose 130 H, Calcium 8.2 L, Total Bilirubin 0.70, AST 26, ALT 30, Alkaline Phosphatase 41 L, Total Protein 6.6, Albumin 1.8 L, Globulin 4.8 H, Album in/Globulin Ratio 0.4 L Micro: Microbiology 02/02/21 09:16 Sputum, Induced/Lukens Gram Stain - Final 02/02/21 09:16 Sputum, Induced/Lukens Respiratory Culture - Final Meth. resistant Staph. aureus 01/30/21 08:00 Sputum, Expectorated/Coughed Gram Stain - Final 01/30/21 08:00 Sputum, Expectorated/Coughed Respiratory Culture - Final Meth. resistant Staph. aureus Streptococcus pneumoniae Physical Exam Const no apparent distress Constitutional Narrative: No ventilator dyssynchrony noted. General Appearance: intubated and patient mechanically ventilated Nutritional Appearance: obese HEENT normocephalic and head/scalp atraumatic Eyes PERRL, EOMs intact bilaterally and conjunctivae normal Neck supple General: trachea midline Chest inspection of chest normal Chest: symmetrical chest wall rise; Negative for crepitus Resp Auscultation: diminished lung sounds; Negative for rales, rhonchi or wheezes Cardio regular rate, regular rhythm, S1 normal heart sound, S2 normal heart sound, no murmurs, no rub and no gallops Cardio Narrative: Normal sinus rhythm on telemetry GI normal to inspection, nondistended, normoactive bowel sounds Extremity General Extremity: edema bilateral lower extremity Details: mild; Negative for clubbing or cyanosis Skin no rashes or lesions noted Neuro Sensorium / Orientation: sedated on vent Charges/Coding Procedures Hospitalists Procedures: [id number] Critial Care 1st Hr
[2021-02-06] MEDS: Furosemide 40 MG/4 ML Vial IV (07:40)
[2021-02-06] MEDS: dexAMETHasone 10 MG/ML Vial 6 MG IV (07:41)
[2021-02-06] MEDS: Polyethylene Glycol 3350 17 GM PACKET 34 GM PO (07:43)
[2021-02-06] MEDS: Chlorhexidine 15 ML PO ×2 (07:47→20:12)
[2021-02-06] MEDS: Enoxaparin 40 MG/0.4 ML Syringe SC ×2 (08:29→20:14)
[2021-02-06] MEDS: Senna/Docusate Sodium 1 Tablet 2 TABLET GT ×2 (08:29→20:13)
[2021-02-06] MEDS: Propofol 10MG/Ml 1,000 MG/100 ML Bottle 29.8 MG CONT INF ×4 (08:30→19:15)
--- NOTE | 2021-02-06 11:17 | CASEMGMT ---
SW participated in ICU rounds this morning. SW called , offered support. explains that she was able to facetime w/ yesterday, and spoke highly of the care pt is getting, in particular his bedside RN Naima. states they have 9 children and the children were able to see pt, which was helpful. SW explained spoke to Naima and is able to assist again with a facetime call later should want to do this. states understanding. inquired about visitation with the pt. SW asked RN, reviewed when pt will be out of quarantine, which looks to be 02/09/21. SW let know she may be able to visit at that time, will not be able to say for certain however until that day. states understanding. SW madiha continue to follow and be available for support to and family. CARMINA Hendrix
[2021-02-06] MEDS: Vital AF 1.2 Cal Liquid 1,000 ML 50 ML GT (13:06)
--- NOTE | 2021-02-06 14:33 | PCM.PN.ID ---
Physical Exam Narrative On vent, low grade fever one time Const no apparent distress Resp Effort and Inspection: mechanically ventilated Auscultation: diminished lung sounds Cardio regular rate and regular rhythm GI normal to inspection, nondistended, normoactive bowel sounds Skin no rashes or lesions noted ID ID: Route of nutrition/ use of supplements: [] Nutritional Intake: [] IV Site: [] Buckner Catheter: [] Assessment & Plan Assessment/Plan (1) Pneumonia due to COVID-19 virus: PLAN: Covid sx started around 01/20/21. Unvaccinated; recommend vaccine once out of the hospital and out of isolation. Isolate for 20 days. Sputum cx with MRSA and s. pneumo. On dex and completed remdesivir, cont baricitinib. On vanc/ceftriaxone. Will follow (2) Acute respiratory failure with hypoxemia:
--- NOTE | 2021-02-06 14:50 | PN.HOSP_ITS ---
Subjective Subjective Patient remains intubated and sedated on a ventilator with a PEEP of 15 and an FiO2 of 100%. Sedation with fentanyl and propofol. Objective Data Objective Data Vital Signs: Vital Signs Temp Pulse Resp BP Pulse Ox 98.2 F 60 19 H 104/69 90 02/06/21 12:00 02/06/21 12:00 02/06/21 12:00 02/06/21 12:00 02/06/21 12:00 Oxygen Flow Rate (L/min) 90 Oxygen Delivery Method Mechanical Ventilator Weight: 101.1 kg Body Mass Index (BMI) 32.0 Intake & Output: Intake and Output for Last 24 Hours 02/05/21 02/05/21 02/06/21 00:59 23:59 23:59 Intake Total 2201.91 / 2201.91 Output Total 2750 / 2750 Balance -548.09 / -548.09 Lab / Micro Data Result Diagrams: 02/06/21 02:40 02/06/21 02:40 Labs: Laboratory Results - last 24 hr 02/05/21 21:05: Vancomycin Trough 10.4 02/06/21 02:40: WBC 16.6 H, RBC 4.15 L, Hgb 11.8 L, Hct 37.3 L, MCV 89.9, MCH 28.4, MCHC 31.6 L, RDW Std Deviation 39.5, RDW Coeff of Reyes 12.0, Plt Count 426, MPV 9.4, Immature Gran % (Auto) 3.600 H, Neut % (Auto) 87.5 H, Lymph % (Auto) 4.7 L, [place] % (Auto) 3.1, Eos % (Auto) 0.8, Baso % (Auto) 0.3, Absolute Neuts (auto) 14.5 H, Absolute Lymphs (auto) 0.77 L, Nucleated RBC % 0 02/06/21 02:40: Sodium 143, Potassium 4.2, Chloride 105, Carbon Dioxide 34.0 H, Anion Gap 4 L, BUN 39 H, Creatinine 0.72, Estim Creat Clear Calc 119.70, Est GFR (MDRD) Af Amer 146, Est GFR (MDRD) Non-Af 121, BUN/Creatinine Ratio 54.5 H, Glucose 130 H, Calcium 8.2 L, Total Bilirubin 0.70, AST 26, ALT 30, Alkaline Phosphatase 41 L, Total Protein 6.6, Albumin 1.8 L, Globulin 4.8 H, Albumin/Globulin Ratio 0.4 L Micro: Microbiology 02/02/21 09:16 Sputum, Induced/Lukens Gram Stain - Final 02/02/21 09:16 Sputum, Induced/Lukens Respiratory Culture - Final Meth. resistant Staph. aureus 01/30/21 08:00 Sputum, Expectorated/Coughed Gram Stain - Final 01/30/21 08:00 Sputum, Expectorated/Coughed Respiratory Culture - Final Meth. resistant Staph. aureus Streptococcus pneumoniae Radiography Diagnostic Testing: Radiology Impression Chest X-Ray 02/06/21 06:05 IMPRESSION: Progressive bilateral pulmonary infiltrates worse in the right hemithorax. Electronically Signed: Zain Araujo MD at 8:39 EST , Service support , Physical Exam Const Constitutional Narrative: Intubated and sedated Nutritional Appearance: obese HEENT head/scalp atraumatic and moist oral mucous membranes HEENT Narrative: ET tube in place Head and Scalp: normocephalic Resp normal respiratory effort, no retractions, no use of accessory muscles and clear to auscultation bilaterally Resp Narrative: Diffusely diminished but clear Auscultation: Negative for crackles, rales, rhonchi or wheezes Cardio regular rate, regular rhythm and S1 normal heart sound GI normal to inspection, nondistended, normoactive bowel sounds, soft to palpation, non-tender and non-distended Extremity Extremity Narrative: No clubbing or cyanosis, bilateral upper and lower extremity edema peripherally General Extremity: edema Peripheral Pulses: Yes pulses 2+ throughout Skin no rashes or lesions noted, no wounds, skin turgor normal, no jaundice, no petechiae and no mottling Neuro Neuro Narrative: Intubated and sedated Psych Psych Narrative: Unable to assess Assessment & Plan Assessment/Plan (1) Pneumonia due to COVID-19 virus: (2) Acute respiratory failure with hypoxemia: (3) Constipation: (4) Acute anemia: (5) Hyperglycemia: (6) Streptococcal pneumonia: (7) MRSA pneumonia: PLAN: Acute hypoxic respiratory failure secondary to COVID-19 pneumonia/pneumococcal pneumonia/MRSA pneumonia -Intubated on 02/02/2021 -Currently on AC VC respiratory support with an FiO2 of 100% and a PEEP of 15 and an SPO2 of 90% -Baricitinib dose of -Decadron dose of -Continue antibiotics with ceftriaxone and vancomycin to treat pneumococcal and MRSA pneumonias -Lasix given today -Appreciate ID and pulmonary medicine input Constipation -Patient was dosed with MiraLAX and suppository twice daily today with as needed availability -Tolerating tube feed Acute anemia -Suspect related to COVID-19 and frequent blood draws -No signs of bleeding -Continue prophylactic Protonix while intubated and on steroids Hyperglycemia secondary to steroid use -Mild elevations with no need for coverage at this time -Continue to monitor Obesity -BMI 32 -Complicates treatment, prognosis, outcomes DVT prophylaxis -SCDs -Lovenox with increase dose to 40 mg twice daily CODE STATUS -Full code -Overall prognosis is poor given current respiratory support requirements Charges/Coding Visit Charges Inpatient E&M: 62953 Subs Hosp L2
[2021-02-06] MEDS: Acetaminophen 650 MG/20 ML UDC GT (20:13)
[2021-02-06 21:13] LABS: Vancomycin, Trough Level 12.2 ug/mL (5.0-15.0)
[2021-02-06] MEDS: Propofol 10MG/Ml 1,000 MG/100 ML Bottle 20.9 MG CONT INF (23:15)
[2021-02-06 23:26] LABS: Allen Test Positive; Base Excess 9 mmol/L (-2 to +2); Bicarbonate 33.7 mmol/L (22-26); Blood Gas Specimen Type ART; FI02 100; Mode BiLevel; O2 Delivery Device Adult Vent; PO2 57 mmHG (75-100); RR 12; SITE R Radial; SO2 88 % (95-99); Total Carbon Dioxide 36 mmol/L; pCO2 57.3 mmHg (35-45); pH 7.38 (7.35-7.45)
[2021-02-07] VITALS (33 sets, daily range): BP systolic 103–159; BP diastolic 67–95; PULSE 57–116; RESP 14–78; TEMP 36.6–38.1; O2SAT 82–96
[2021-02-07] MEDS: Propofol 10MG/Ml 1,000 MG/100 ML Bottle 20.9 MG CONT INF (01:09)
[2021-02-07 03:13] LABS: Absolute Lymphocyte Count 0.65 X10^3/uL (0.83-4.51); Absolute Neutrophil Count 16.2 X10^3/uL (2.0-7.7); Basophil# 0.02 X10^3/uL; Basophil% 0.1 % (0-1); Eosinophil# 0.11 X10^3/uL; Eosinophils% 0.6 % (0-5); Hematocrit 36.5 % (40-54); Hemoglobin 11.8 g/dL (13.0-16.5); Lymphocyte # 0.65 X10^3/ul (0.83-4.51); Lymphocyte % 3.6 % (19-41); Mean Corp Hgb Conc 32.3 g/dL (32-36); Mean Corpuscular Hgb 28.9 pg (27.0-32.0); Mean Corpuscular Volume 89.5 fL (80-94); Mean Platelet Vol. 9.6 fl (6.2-12.0); Monocyte# 0.52 X10^3/uL; Monocyte% 2.9 % (0-10); NRBC Flagged by Analyzer 0 % (0-5); Neutrophil # 16.22 X10^3/uL (2.7-7.7); Neutrophil % 90.5 % (47-70); Platelet Count 418 K/mm3 (150-450); RBC Distribution Width SD 39.4 fl (35.1-43.9); Red Blood Count 4.08 M/mm3 (4.6-6.2); White Blood Count 17.9 K/mm3 (4.4-11.0)
--- NOTE | 2021-02-07 03:21 | PCM.RX.CS ---
Consult Pharmacy has been consulted to manage selected antiobiotic: Vancomycin Type of Consult: Follow-up Labs: Vancomycin Trough 12.2 ug/mL (5.0-15.0) 02/06/21 20:30 Microbiology: Microbiology 02/02/21 09:16 Sputum, Induced/Lukens Gram Stain - Final 02/02/21 09:16 Sputum, Induced/Lukens Respiratory Culture - Final Meth. resistant Staph. aureus 01/30/21 08:00 Sputum, Expectorated/Coughed Gram Stain - Final 01/30/21 08:00 Sputum, Expectorated/Coughed Respiratory Culture - Final Meth. resistant Staph. aureus Streptococcus pneumoniae Goal Trough: 15-20 mcg/mL Pharmacy Plan for Drug Dosing: Pharmacy Service will continue to monitor and adjust dosing as required. TROUGH 12.2 SCr DECREASED FROM 0.83 TO 0.72. RECHECK TROUGH IN 2 DAYS Follow-Up Labs: Trough Vancomycin Labs to be done on [date and time ordered]: 02/08 @ 5548
[2021-02-07 04:11] LABS: Anion Gap 4 (5-15); BUN 37 mg/dL (7-18); BUN/Creat Ratio 54.8 RATIO (10-20); Chloride 103 mmol/L (98-107); Creatinine, Serum 0.68 mg/dL (0.70-1.30); EST Glomerular Filtration Rate 129 mL/min (>60); Est Glom Filt Rate - Afr Amer 157 mL/min (>60); Estimated Creatinine Clearance 126.74 ml/min; Glucose 129 mg/dL (74-106); Potassium 3.8 mmol/L (3.5-5.1); Sodium Level 141 mmol/L (136-145)
[2021-02-07] MEDS: Propofol 10MG/Ml 1,000 MG/100 ML Bottle 23.8 MG CONT INF (04:32)
[2021-02-07] MEDS: TITRATION PARAMETER CHANGE 1 EACH IV (04:47)
[2021-02-07] MEDS: Furosemide 40 MG/4 ML Vial IV (06:37)
[2021-02-07] MEDS: Propofol 10MG/Ml 1,000 MG/100 ML Bottle 27.4 MG CONT INF ×6 (06:52→22:15)
--- NOTE | 2021-02-07 07:07 | PN.CC_ITS ---
Assessment & Plan Assessment/Plan (1) Pneumonia due to COVID-19 virus: (2) Acute respiratory failure with hypoxemia: PLAN: RECOMMENDATIONS: 1. Continue to wean FiO2 and PEEP to maintain oxygen saturations at or above 90%. 2. Continue current sedation regimen. Add Precedex 3. Continue antimicrobials as ordered. 4. Continue Lovenox (prophylactic), baricitinib (02/14/2021) and Decadron (02/09/2021). 5. Diuretic therapy, as needed, to maintain euvolemic state. 6. Hold tube feeds at current rate. Potentially hold of proning. Continue aggressive bowel regimen 7. Continue appropriate GI prophylaxis. 8. Potential attempt at proning later today if able to sedate enough with Precedex 9. Order PICC IMPRESSIONS: 1. Acute hypoxemic respiratory failure secondary to COVID-19 and superimposed pneumococcal/MRSA pneumonia The patient presented to the hospital as a transfer of care from an outside facility with COVID-19 pneumonia and worsening dyspnea/hypoxemia. D- dimer was reportedly within normal limits. Following multiple days on noninvasive positive pressure ventilatory support, the patient failed to improve from a respiratory perspective and was intubated on February 02. He was maintained on paralytics for 48 hours. He has completed a treatment course of remdesivir. He remains on Decadron, baricitinib and Lovenox. The patient also remains on antimicrobials due to MRSA and Streptococcus pneumonia isolated from sputum. Anticipate 10-day course for each of the antibiotics. Patient is not spiking fever, so we will hold on repeat cultures at this time. Patient was transition to APRV, so we will get daily ABG. Plan to continue to wean FiO2 and PEEP as tolerated for saturations greater than 90%. We will add Precedex to see if patient can be sedated well enough to safely prone. Initiate aggressive bowel regimen continue appropriate GI prophylaxis. Continue intermittent dosing of Lasix, as needed, to maintain euvolemic state. Addendum 2 PM: Extensive conversation with the and son about patient's situation. He stated that he would want to be aggressive as he has multiple children and grandchildren. They also feel that he is relatively young and a fighter. They do understand that he is having marginal saturations despite high APRV set tings. Did discuss prone positioning as a possible adjunct therapy. They understand that this can be dangerous and lead to arrest. Patient will remain a full code for now. They will stay present until prone positioning is completed. Total discussion time of 45 minutes TIME: 85 minutes of critical care time, independent of procedures, was spent addressing the patient's acute hypoxemic respiratory failure secondary to COVID- 19 pneumonia, review of all data and collaboration with care team. (6 AM to 7 AM, 1 PM to 2 PM) Subjective Subjective Patient with significant oxygenation issues overnight. Patient was increased to 18 of PEEP, but still had saturations in the mid 80s. Patient subsequently changed to APRV with some control of hypoxia. Patient has had moderate secre tions per nursing and respiratory. Patient's tube feeds are at 50 cc/h. Patient has had intermittent episodes of agitation. Objective Data Objective Data Vital Signs: Vital Signs Temp Pulse Resp BP Pulse Ox 37.5 C H 116 H 26 H 159/95 H 84 02/07/21 04:00 02/07/21 06:00 02/07/21 06:00 02/07/21 06:00 02/07/21 06:00 Oxygen Flow Rate (L/min) 90 Oxygen Delivery Method Mechanical Ventilator Weight: 101.5 kg Body Mass Index (BMI) 32.0 Intake & Output: Intake and Output for Last 24 Hours 02/05/21 02/06/21 02/07/21 23:59 23:59 23:59 Intake Total 3337.17 / 3492.85 538.35 / 538.35 Output Total 3050 / 3425 675 / 675 Balance 287.17 / 67.85 -136.65 / -136.65 Lab / Micro Data Result Diagrams: 02/07/21 03:00 02/07/21 03:00 Labs: Laboratory Results - last 24 hr 02/06/21 20:30: Vancomycin Trough 12.2 02/07/21 03:00: WBC 17.9 H, RBC 4.08 L, Hgb 11.8 L, Hct 36.5 L, MCV 89.5, MCH 28.9, MCHC 32.3, RDW Std Deviation 39.4, RDW Coeff of Reyes 12.0, Plt Count 418, MPV 9.6, Immature Gran % (Auto) 2.300 H, Neut % (Auto) 90.5 H, Lymph % (Auto) 3.6 L, [place] % (Auto) 2.9, Eos % (Auto) 0.6, Baso % (Auto) 0.1, Absolute Neuts (auto) 16.2 H, Absolute Lymphs (auto) 0.65 L, Nucleated RBC % 0 02/07/21 03:00: Sodium 141, Potassium 3.8, Chloride 103, Carbon Dioxide 34.0 H, Anion Gap 4 L, BUN 37 H, Creatinine 0.68 L, Estim Creat Clear Calc 126.74, Est GFR (MDRD) Af Amer 157, Est GFR (MDRD) Non-Af 129, BUN/Creatinine Ratio 54.8 H, Glucose 129 H, Calcium 8.0 L Micro: Microbiology 02/02/21 09:16 Sputum, Induced/Lukens Gram Stain - Final 02/02/21 09:16 Sputum, Induced/Lukens Respiratory Culture - Final Meth. resistant Staph. aureus 01/30/21 08:00 Sputum, Expectorated/Coughed Gram Stain - Final 01/30/21 08:00 Sputum, Expectorated/Coughed Respiratory Culture - Final Meth. resistant Staph. aureus Streptococcus pneumoniae ABG Data ABG results: ABG 02/06/21 23:20 Specimen Type ART Sample Site R Radial pH 7.38 Bicarbonate Actual 33.7 H Total CO2 36 Base Excess 9 H O2 Saturation 88 L O2 % 100 ABG pCO2 57.3 H ABG pO2 57 L Terrance Test Positive Respiration Rate 12 O2 Delivery Device Adult Vent Vent Mode BiLevel Radiography Diagnostic Testing: Radiology Impression Chest X-Ray 02/06/21 06:05 IMPRESSION: Progressive bilateral pulmonary infiltrates worse in the right hemithorax. Electronically Signed: Zain Araujo MD at 8:39 EST , Service support , Physical Exam Const no apparent distress Constitutional Narrative: No ventilator dyssynchrony noted. General Appearance: intubated and patient mechanically ventilated Nutritional Appearance: obese HEENT normocephalic and head/scalp atraumatic Eyes PERRL, EOMs intact bilaterally and conjunctivae normal Neck supple General: trachea midline Chest inspection of chest normal Chest: symmetrical chest wall rise; Negative for crepitus Resp Auscultation: rhonchi throughout and diminished lung sounds; Negative for rales or wheezes Cardio regular rate, regular rhythm, S1 normal heart sound, S2 normal heart sound, no murmurs, no rub and no gallops Cardio Narrative: Normal sinus rhythm on telemetry GI normal to inspection, nondistended, normoactive bowel sounds Extremity General Extremity: edema bilateral lower extremity Details: mild; Negative for clubbing or cyanosis Skin no rashes or lesions noted Neuro Sensorium / Orientation: sedated on vent Charges/Coding Procedures Hospitalists Procedures: 68514 Critial Care 1st Hr Multi Select Codes Hospitalists' Procedures Procedures: 04465 Critial Care Addl 30 Min
[2021-02-07 07:41] LABS: Base Excess 12 mmol/L (-2 to +2); Blood Gas Specimen Type ART; FI02 100; Mode BiLevel; O2 Delivery Device Adult Vent; PO2 46 mmHG (75-100); RR 12; SITE L Brach; SO2 77 % (95-99); Total Carbon Dioxide 39 mmol/L; pCO2 66.1 mmHg (35-45); pH 7.36 (7.35-7.45)
[2021-02-07] MEDS: Potassium Chloride Oral Soln 20 MEQ/15 ML UDC 40 MEQ PO (08:37)
[2021-02-07] MEDS: dexAMETHasone 10 MG/ML Vial 6 MG IV (08:40)
[2021-02-07] MEDS: Enoxaparin 40 MG/0.4 ML Syringe SC ×2 (08:41→20:36)
[2021-02-07] MEDS: Senna/Docusate Sodium 1 Tablet 2 TABLET GT ×2 (08:42→20:36)
[2021-02-07] MEDS: Chlorhexidine 15 ML PO ×2 (08:43→20:37)
[2021-02-07] MEDS: Polyethylene Glycol 3350 17 GM PACKET PO (08:43)
--- NOTE | 2021-02-07 09:33 | RAD_ITS ---
STUDY: X-RAY CHEST REASON FOR EXAM: Male, 55 years old. Pulse ox TECHNIQUE: Single AP portable view of the chest. COMPARISON: Comparison is made with prior study dated 02/06/2021. FINDINGS: An endotracheal tube is in situ. The tip is at 3.6 cm proximal to the nancie. An orogastric tube is seen with the tip in the body of the stomach. EKG electrodes are seen. Since prior study, there has been improved aeration in the right hemithorax. Mild residual changes persist. Persistent infiltrate in the left hemithorax. There is no demonstrated pleural abnormality. Normal size heart. Normal mediastinum and christiano. Normal visualized pulmonary arteries. Normal visualized aortic arch and descending thoracic aorta. There are diffuse degenerative changes of the visualized thoracic spine. Normal visualized ribs, clavicles, and shoulders. There is no demonstrated abnormality of the visualized soft tissue structures of the upper abdomen. RAD/Chest 1 View (Portable) IMPRESSION: Improved aeration of the right hemithorax. Persistent infiltration in the left hemithorax. All the support tubes are in good position. Electronically Signed: Zain Araujo MD at 10:19 EST , Service support ,
[2021-02-07] MEDS: Magnesium Citrate 300 ML NG (09:42)
[2021-02-07] MEDS: CHLORHEXIDINE GLUC 2% CLOTH 1 EACH TOWELETTE TOPICAL (09:48)
[2021-02-07] MEDS: Vital AF 1.2 Cal Liquid 1,000 ML 50 ML GT (10:47)
--- NOTE | 2021-02-07 14:00 | NURSING ---
Dr Ortiz having meeting with family ,nurse present social welfare research worker & pratima
--- NOTE | 2021-02-07 14:15 | NURSING ---
pt turned to prone position, family @ bedside before & after proning
--- NOTE | 2021-02-07 14:36 | PN.HOSP_ITS ---
Subjective Subjective Patient remains intubated and sedated. He has been switched to bilevel ventilation secondary to hypoxemia with AC VC ventilation. He remains hypoxic with a high PEEP in the 20s. Family meeting was held this afternoon and they are going to try proning to see if this helps his hypoxia. Patient remains on heavy sedation. Objective Data Objective Data Vital Signs: Vital Signs Temp Pulse Resp BP Pulse Ox 97.9 F 75 35 H 110/68 90 02/07/21 12:00 02/07/21 14:21 02/07/21 14:21 02/07/21 12:00 02/07/21 14:21 Oxygen Flow Rate (L/min) 90 Oxygen Delivery Method Mechanical Ventilator Weight: 101.5 kg Body Mass Index (BMI) 32.0 Intake & Output: Intake and Output for Last 24 Hours 02/05/21 02/06/21 02/07/21 23:59 23:59 23:59 Intake Total 3337.17 / 3492.85 885.96 / 885.96 Output Total 3050 / 3425 2275 / 2275 Balance 287.17 / 67.85 -1389.04 / -1389.04 Lab / Micro Data Result Diagrams: 02/07/21 03:00 02/07/21 03:00 Labs: Laboratory Results - last 24 hr 02/06/21 20:30: Vancomycin Trough 12.2 02/07/21 03:00: WBC 17.9 H, RBC 4.08 L, Hgb 11.8 L, Hct 36.5 L, MCV 89.5, MCH 28.9, MCHC 32.3, RDW Std Deviation 39.4, RDW Coeff of Reyes 12.0, Plt Count 418, MPV 9.6, Immature Gran % (Auto) 2.300 H, Neut % (Auto) 90.5 H, Lymph % (Auto) 3.6 L, [place] % (Auto) 2.9, Eos % (Auto) 0.6, Baso % (Auto) 0.1, Absolute Neuts (auto) 16.2 H, Absolute Lymphs (auto) 0.65 L, Nucleated RBC % 0 02/07/21 03:00: Sodium 141, Potassium 3.8, Chloride 103, Carbon Dioxide 34.0 H, Anion Gap 4 L, BUN 37 H, Creatinine 0.68 L, Estim Creat Clear Calc 126.74, Est GFR (MDRD) Af Amer 157, Est GFR (MDRD) Non-Af 129, BUN/Creatinine Ratio 54.8 H, Glucose 129 H, Calcium 8.0 L Micro: Microbiology 02/02/21 09:16 Sputum, Induced/Lukens Gram Stain - Final 02/02/21 09:16 Sputum, Induced/Lukens Respiratory Culture - Final Meth. resistant Staph. aureus 01/30/21 08:00 Sputum, Expectorated/Coughed Gram Stain - Final 01/30/21 08:00 Sputum, Expectorated/Coughed Respiratory Culture - Final Meth. resistant Staph. aureus Streptococcus pneumoniae ABG Data ABG results: ABG 02/06/21 02/07/21 23:20 07:35 Specimen Type ART ART Sample Site R Radial L Brach pH 7.38 7.36 Bicarbonate Actual 33.7 H 37.0 H Total CO2 36 39 Base Excess 9 H 12 H O2 Saturation 88 L 77 L O2 % 100 100 ABG pCO2 57.3 H 66.1 H ABG pO2 57 L 46 L Terrance Test Positive Respiration Rate 12 12 O2 Delivery Device Adult Vent Adult Vent Vent Mode BiLevel BiLevel Clinical Comments pH26 PL 0 TH4.5 Radiography Diagnostic Testing: Radiology Impression Chest X-Ray 02/07/21 09:33 IMPRESSION: Improved aeration of the right hemithorax. Persistent infiltration in the left hemithorax. All the support tubes are in good position. Electronically Signed: Zain Araujo MD at 10:19 EST , Service support , Physical Exam Const Constitutional Narrative: Intubated and sedated Nutritional Appearance: obese HEENT head/scalp atraumatic and moist oral mucous membranes Resp normal respiratory effort, no retractions, no use of accessory muscles and clear to auscultation bilaterally Resp Narrative: Diffusely diminished with few scattered crackles, marked tachypnea Auscultation: crackles; Negative for rales, rhonchi or wheezes Cardio regular rate, regular rhythm and S1 normal heart sound GI normal to inspection, nondistended, normoactive bowel sounds, soft to palpation, non-tender and non-distended Extremity Extremity Narrative: No clubbing or cyanosis, bilateral upper and lower extremity edema peripherally General Extremity: edema Peripheral Pulses: Yes pulses 2+ throughout Skin no rashes or lesions noted, no wounds, skin turgor normal, no jaundice, no p etechiae and no mottling Neuro Neuro Narrative: Intubated and sedated Psych Psych Narrative: Unable to assess Assessment & Plan Assessment/Plan (1) Pneumonia due to COVID-19 virus: (2) Acute respiratory failure with hypoxemia: (3) Constipation: (4) Acute anemia: (5) Hyperglycemia: (6) Streptococcal pneumonia: (7) MRSA pneumonia: PLAN: Acute hypoxic respiratory failure secondary to COVID-19 pneumonia/pneumococcal pneumonia/MRSA pneumonia -Intubated on 02/02/2021 -Now on bilevel ventilation respiratory support with an FiO2 of 100% and a high PEEP of 25 and an SPO2 in the mid 80s -Baricitinib dose 4 of 11 -Decadron dose 8 of 10 -ABG done this morning and shows hypoxia with what appears to be chronic hypercapnia given the normal pH -PO2 is 46 -PCO2 was 66 -Continue antibiotics with ceftriaxone and vancomycin to treat pneumococcal and MRSA pneumonias -Lasix given again today -Appreciate ID and pulmonary medicine input Constipation -Patient was dosed with MiraLAX and suppository twice daily today with as needed availability -Tolerating tube feed -Still no bowel movement Acute anemia -Suspect related to COVID-19 and frequent blood draws -No signs of bleeding -Continue prophylactic Protonix while intubated and on steroids Hyperglycemia secondary to steroid use -Mild elevations with no need for coverage at this time -Continue to monitor Obesity -BMI 32 -Complicates treatment, prognosis, outcomes DVT prophylaxis -SCDs -Lovenox with increase dose to 40 mg twice daily CODE STATUS -Full code -Overall prognosis is poor given current respiratory support requirements--> [facility] with no change in CODE STATUS--> prone ventilation initiation today normocytic Charges/Coding Visit Charges Inpatient E&M: 60720 Subs Hosp L2
--- NOTE | 2021-02-07 14:54 | CASEMGMT ---
SW participated in a meeting with physician, nurse, distance learning unit leader, pt's and son Martinez Altman. Physician went over with family pt's condition and code status. SW and distance learning unit leader then spoke w/ and son, offered support. SW remains available for support to family. CARMINA Hendrix
--- NOTE | 2021-02-07 17:28 | CHAPLAIN ---
Type of Pastoral Visit _x__ Initial Visit ___ Follow-up Visit ___ On-call Visit ___ General Patient Visit ___ Spiritual Assessment _x__ Family Conference ___ Bereavement ___ Rapid Response ___ Code Blue ___ Other (describe below) Pastoral Care Referral From ___ Patient _x__ Family _x__ Nurse ___ Physician ___ Field Case Manager ___ Segment Block Layer ___ Other (describe below) Sacrament/Intervention ___ Active listening ___ Anointing ___ Hinduism ___ Bereavement ___ Communion _x__ Danya exploration ___ _x__ Life review _x__ Prayer ___ Reconciliation ___ Sacrament of Sick _x__ Supportive presence ___ Wedding ___ Other (describe below) Pastoral Comments meet with family members who were in conference with and CHRISTINA; family open to support and the opportunity to talk about their feelings, decisions, spiritual background, and family; patient was on the Worship danya but has not been active or practicing. family is open to prayer support now and in future
[2021-02-07] MEDS: Acetaminophen 650 MG/20 ML UDC GT (20:50)
[2021-02-08] VITALS (33 sets, daily range): BP systolic 108–160; BP diastolic 54–90; PULSE 48–109; RESP 10–32; TEMP 36.4–37.3; O2SAT 24–92
[2021-02-08] MEDS: Propofol 10MG/Ml 1,000 MG/100 ML Bottle 27.4 MG CONT INF ×7 (01:05→22:29)
[2021-02-08 04:38] LABS: Absolute Lymphocyte Count 0.62 X10^3/uL (0.83-4.51); Absolute Neutrophil Count 15.2 X10^3/uL (2.0-7.7); Basophil# 0.04 X10^3/uL; Basophil% 0.2 % (0-1); Eosinophil# 0.04 X10^3/uL; Eosinophils% 0.2 % (0-5); Hematocrit 40.4 % (40-54); Hemoglobin 12.6 g/dL (13.0-16.5); Lymphocyte # 0.62 X10^3/ul (0.83-4.51); Lymphocyte % 3.7 % (19-41); Mean Corp Hgb Conc 31.2 g/dL (32-36); Mean Corpuscular Hgb 28.4 pg (27.0-32.0); Monocyte% 4.1 % (0-10); NRBC Flagged by Analyzer 0 % (0-5); Neutrophil # 15.18 X10^3/uL (2.7-7.7); POSITIVE COUNT YES; Platelet Count 328 K/mm3 (150-450); RBC Distribution Width CV 11.9 % (11.6-14.6); RBC Distribution Width SD 39.7 fl (35.1-43.9); Red Blood Count 4.44 M/mm3 (4.6-6.2); White Blood Count 16.9 K/mm3 (4.4-11.0)
[2021-02-08 04:50] LABS: Anion Gap 1 (5-15); BUN 42 mg/dL (7-18); BUN/Creat Ratio 58.2 RATIO (10-20); Calcium,Total 7.8 mg/dL (8.5-10.1); Chloride 102 mmol/L (98-107); Creatinine, Serum 0.72 mg/dL (0.70-1.30); EST Glomerular Filtration Rate 120 mL/min (>60); Est Glom Filt Rate - Afr Amer 145 mL/min (>60); Glucose 120 mg/dL (74-106); Potassium 5.3 mmol/L (3.5-5.1); Sodium Level 141 mmol/L (136-145)
[2021-02-08 04:51] LABS: Base Excess 13 mmol/L (-2 to +2); Bicarbonate 38.8 mmol/L (22-26); Blood Gas Specimen Type ART; FI02 100; Mode BiLevel; O2 Delivery Device Adult Vent; PO2 52 mmHG (75-100); RR 12; SITE R Radial; SO2 81 % (95-99); Total Carbon Dioxide 41 mmol/L; pCO2 74.3 mmHg (35-45); pH 7.33 (7.35-7.45)
[2021-02-08 04:57] LABS: Differential Indicated SCAN CRITERIA MET
[2021-02-08 05:11] LABS: Differential Comment SCANNED
--- NOTE | 2021-02-08 06:37 | CPS ---
notified by WELT TREATER DJ of critical PCO2 values.
--- NOTE | 2021-02-08 07:11 | PN.CC_ITS ---
Assessment & Plan Assessment/Plan (1) Pneumonia due to COVID-19 virus: (2) Acute respiratory failure with hypoxemia: PLAN: RECOMMENDATIONS: 1. Continue to wean FiO2 and P high to maintain oxygen saturations at or above 90%. 2. Continue current sedation regimen. Add Precedex when supine 3. Continue antimicrobials as ordered. 4. Continue Lovenox (prophylactic), baricitinib (02/14/2021) and Decadron (02/09/2021). 5. Diuretic therapy, as needed, to maintain euvolemic state. 6. Okay to give tube feeds while not supine. Continue aggressive bowel regimen 7. Continue appropriate GI prophylaxis. 8. Anticipate proning for 16 hours a day as tolerated IMPRESSIONS: 1. Acute hypoxemic respiratory failure secondary to COVID-19 and rodriguez perimposed pneumococcal/MRSA pneumonia The patient presented to the hospital as a transfer of care from an outside facility with COVID-19 pneumonia and worsening dyspnea/hypoxemia. D-di elio was reportedly within normal limits. Following multiple days on noninvasive positive pressure ventilatory support, the patient failed to improve from a respiratory perspective and was intubated on February 02. He was maintained on paralytics for 48 hours. He has completed a treatment course of remdesivir. He remains on Decadron, baricitinib and Lovenox. The patient also remains on antimicrobials due to MRSA and Streptococcus pneumonia isolated from sputum. Anticipate 10-day course for each of the antibiotics. Patient is not spiking fever, so we will hold on repeat cultures at this time. Patient was transitioned to APRV, so we will get daily ABG. Plan to continue to wean FiO2 and P high as tolerated for saturations greater than 90%. Will attempt to discontinue Precedex while not in the supine position. This may help with bradycardia. Continue intermittent dosing of Lasix, as needed, to maintain euvolemic state. 2. Sinus bradycardia Clinical suspicion at this is secondary to Precedex therapy. Precedex can be used while in the supine position to increase sedation to avoid patient extubation. TIME: 35 minutes of critical care time, independent of procedures, was spent addressing the patient's acute hypoxemic respiratory failure secondary to COVID- 19 pneumonia, review of all data and collaboration with care team. (5:30 AM to 6:30 AM) Subjective Subjective The patient did okay overnight. Patient did have significant bradycardia, but saturations have been acceptable in the prone position. Patient did desaturate when being moved to the supine position this morning. Objective Data Objective Data Vital Signs: Vital Signs Temp Pulse Resp BP Pulse Ox 37.3 C 49 L 14 111/64 87 02/08/21 00:00 02/08/21 07:00 02/08/21 07:00 02/08/21 07:00 02/08/21 07:00 Oxygen Flow Rate (L/min) 90 Oxygen Delivery Method Mechanical Ventilator Weight: 102.3 kg Body Mass Index (BMI) 32.0 Intake & Output: Intake and Output for Last 24 Hours 02/06/21 02/07/21 02/08/21 23:59 23:59 23:59 Intake Total 3337.17 / 3492.85 2171.42 / 2217.59 978.18 / 978.18 Output Total 3050 / 3425 2660 / 2860 600 / 600 Balance 287.17 / 67.85 -488.58 / -642.41 378.18 / 378.18 Lab / Micro Data Result Diagrams: 02/08/21 04:25 02/08/21 04:25 Labs: Laboratory Results - last 24 hr 02/08/21 04:25: WBC 16.9 H, RBC 4.44 L, Hgb 12.6 L, Hct 40.4, MCV 91.0, MCH 28.4, MCHC 31.2 L, RDW Std Deviation 39.7, RDW Coeff of Reyse 11.9, Plt Count 328, MPV 10.0, Immature Gran % (Auto) 1.800 H, Neut % (Auto) 90.0 H, Lymph % (Auto) 3.7 L, [place] % (Auto) 4.1, Eos % (Auto) 0.2, Baso % (Auto) 0.2, Absolute Neuts (auto) 15.2 H, Absolute Lymphs (auto) 0.62 L, Nucleated RBC % 0, Differential Comment SCANNED 02/08/21 04:25: Sodium 141, Potassium 5.3 H, Chloride 102, Carbon Dioxide 38.0 H , Anion Gap 1 L, BUN 42 H, Creatinine 0.72, Estim Creat Clear Calc 119.70, Est GFR (MDRD) Af Amer 145, Est GFR (MDRD) Non-Af 120, BUN/Creatinine Ratio 58.2 H, Glucose 120 H, Calcium 7.8 L Micro: Microbiology 02/02/21 09:16 Sputum, Induced/Lukens Gram Stain - Final 02/02/21 09:16 Sputum, Induced/Lukens Respiratory Culture - Final Meth. resistant Staph. aureus 01/30/21 08:00 Sputum, Expectorated/Coughed Gram Stain - Final 01/30/21 08:00 Sputum, Expectorated/Coughed Respiratory Culture - Final Meth. resistant Staph. aureus Streptococcus pneumoniae ABG Data ABG results: ABG 02/07/21 02/08/21 07:35 04:46 Specimen Type ART ART Sample Site L Brach R Radial pH 7.36 7.33 L Bicarbonate Actual 37.0 H 38.8 H Total CO2 39 41 Base Excess 12 H 13 H O2 Saturation 77 L 81 L O2 % 100 100 ABG pCO2 66.1 H 74.3 H* ABG pO2 46 L 52 L Terrance Test N/A Respiration Rate 12 12 O2 Delivery Device Adult Vent Adult Vent Vent Mode BiLevel BiLevel Crit Call To/Read Back Yes Clinical Comments pH26 PL 0 TH4.5 Radiography Diagnostic Testing: Radiology Impression Chest X-Ray 02/07/21 09:33 IMPRESSION: Improved aeration of the right hemithorax. Persistent infiltration in the left hemithorax. All the support tubes are in good position. Electronically Signed: Zain Araujo MD at 10:19 EST , Service support , Physical Exam Const no apparent distress Constitutional Narrative: No ventilator dyssynchrony noted. General Appearance: intubated and patient mechanically ventilated Nutritional Appearance: obese HEENT normocephalic and head/scalp atraumatic Eyes PERRL, EOMs intact bilaterally and conjunctivae normal Neck supple General: trachea midline Chest inspection of chest normal Chest: symmetrical chest wall rise; Negative for crepitus Resp Auscultation: rhonchi throughout and diminished lung sounds; Negative for rales or wheezes Cardio regular rhythm, S1 normal heart sound, S2 normal heart sound, no murmurs, no rub and no gallops Cardio Narrative: Sinus bradycardia on telemetry Rate: bradycardia GI normal to inspection, nondistended, normoactive bowel sounds Extremity General Extremity: edema bilateral lower extremity Details: mild; Negative for clubbing or cyanosis Skin no rashes or lesions noted Neuro Sensorium / Orientation: sedated on vent Charges/Coding Procedures Hospitalists Procedures: 03034 Critial Care 1st Hr
[2021-02-08] MEDS: dexAMETHasone 10 MG/ML Vial 6 MG IV (08:04)
[2021-02-08] MEDS: Enoxaparin 40 MG/0.4 ML Syringe SC ×2 (08:05→20:18)
[2021-02-08] MEDS: Polyethylene Glycol 3350 17 GM PACKET PO (08:06)
[2021-02-08] MEDS: Senna/Docusate Sodium 1 Tablet 2 TABLET GT ×2 (08:06→20:18)
[2021-02-08] MEDS: Chlorhexidine 15 ML PO ×2 (08:07→20:18)
[2021-02-08] MEDS: Furosemide 40 MG/4 ML Vial IV (08:14)
[2021-02-08] MEDS: Vital AF 1.2 Cal Liquid 1,000 ML 50 ML GT (09:56)
[2021-02-08] MEDS: Bisacodyl 10 MG Suppository RC (09:56)
[2021-02-08] MEDS: CHLORHEXIDINE GLUC 2% CLOTH 1 EACH TOWELETTE TOPICAL (10:00)
--- NOTE | 2021-02-08 11:46 | PCM.PN.ID ---
Physical Exam Narrative On vent, no fever Const no apparent distress Resp Effort and Inspection: mechanically ventilated Cardio regular rate and regular rhythm GI normal to inspection, nondistended, normoactive bowel sounds Skin no rashes or lesions noted ID ID: Route of nutrition/ use of supplements: [] Nutritional Intake: [] IV Site: [] Buckner Catheter: [] Assessment & Plan Assessment/Plan (1) Pneumonia due to COVID-19 virus: PLAN: Covid sx started around 01/20/21. Unvaccinated; recommend vaccine once out of the hospital and out of isolation. Isolate for 20 days. Sputum cx with MRSA and s. pneumo. On dex and completed remdesivir, cont baricitinib. On vanc. Sputum again with mrsa. Can come out of iso tomorrow. Will follow (2) Acute respiratory failure with hypoxemia:
--- NOTE | 2021-02-08 14:16 | PCM.PN.HOSP ---
Subjective Subjective Patient remains intubated and sedated. Oxygen levels remain quite high. Saturations have dropped and are now in the mid to upper 80s with occasional drops into the upper 70s depending on positioning and movement. He tolerated proning okay yesterday. He remains a full code. Objective Data Objective Data Vital Signs: Vital Signs Temp Pulse Resp BP Pulse Ox 99.1 F 73 20 H 160/85 H 80 02/08/21 00:00 02/08/21 11:00 02/08/21 11:00 02/08/21 11:00 02/08/21 11:00 Oxygen Flow Rate (L/min) 90 Oxygen Delivery Method Mechanical Ventilator Weight: 102.3 kg Body Mass Index (BMI) 32.0 Intake & Output: Intake and Output for Last 24 Hours 02/06/21 02/07/21 02/08/21 23:59 23:59 23:59 Intake Total 3337.17 / 3492.85 2221.42 / 2267.59 1208.18 / 1208.18 Output Total 3050 / 3425 2660 / 2860 600 / 600 Balance 287.17 / 67.85 -438.58 / -592.41 608.18 / 608.18 Lab / Micro Data Result Diagrams: 02/08/21 04:25 02/08/21 04:25 Labs: Laboratory Results - last 24 hr 02/08/21 04:25: WBC 16.9 H, RBC 4.44 L, Hgb 12.6 L, Hct 40.4, MCV 91.0, MCH 28.4, MCHC 31.2 L, RDW Std Deviation 39.7, RDW Coeff of Reyes 11.9, Plt Count 328, MPV 10.0, Immature Gran % (Auto) 1.800 H, Neut % (Auto) 90.0 H, Lymph % (Auto) 3.7 L, [place] % (Auto) 4.1, Eos % (Auto) 0.2, Baso % (Auto) 0.2, Absolute Neuts (auto) 15.2 H, Absolute Lymphs (auto) 0.62 L, Nucleated RBC % 0, Differential Comment SCANNED 02/08/21 04:25: Sodium 141, Potassium 5.3 H, Chloride 102, Carbon Dioxide 38.0 H, Anion Gap 1 L, BUN 42 H, Creatinine 0.72, Estim Creat Clear Calc 119.70, Est GFR (MDRD) Af Amer 145, Est GFR (MDRD) Non-Af 120, BUN/Creatinine Ratio 58.2 H, Glucose 120 H, Calcium 7.8 L Micro: Microbiology 02/02/21 09:16 Sputum, Induced/Lukens Gram Stain - Final 02/02/21 09:16 Sputum, Induced/Lukens Respiratory Culture - Final Meth. resistant Staph. aureus 01/30/21 08:00 Sputum, Expectorated/Coughed Gram Stain - Final 01/30/21 08:00 Sputum, Expectorated/Coughed Respiratory Culture - Final Meth. resistant Staph. aureus Streptococcus pneumoniae ABG Data ABG results: ABG 02/08/21 04:46 Specimen Type ART Sample Site R Radial pH 7.33 L Bicarbonate Actual 38.8 H Total CO2 41 Base Excess 13 H O2 Saturation 81 L O2 % 100 ABG pCO2 74.3 H* ABG pO2 52 L Terrance Test N/A Respiration Rate 12 O2 Delivery Device Adult Vent Vent Mode BiLevel Crit Call To/Read Back Yes Clinical Comments Physical Exam Const Constitutional Narrative: Intubated and sedated, tachypneic, lying in stools patient just had a bowel movement Nutritional Appearance: obese HEENT head/scalp atraumatic and moist oral mucous membranes HEENT Narrative: ET tube in place Head and Scalp: normocephalic Resp normal respiratory effort, no retractions, no use of accessory muscles and clear to auscultation bilaterally Resp Narrative: Marked tachypnea, diffusely diminished Auscultation: Negative for crackles, rales, rhonchi or wheezes Cardio regular rate, regular rhythm, S1 normal heart sound, S2 normal heart sound, no murmurs, no rub, no gallops, no clicks and no JVD GI normal to inspection, nondistended, normoactive bowel sounds, soft to palpation, non-tender and non-distended Extremity Extremity Narrative: No clubbing or cyanosis, bilateral upper and lower extremity edema peripherally General Extremity: edema Peripheral Pulses: Yes pulses 2+ throughout Skin no rashes or lesions noted, no wounds, skin turgor normal, no jaundice, no petechiae and no mottling Neuro Neuro Narrative: Intubated and sedated Psych Psych Narrative: Unable to assess Assessment & Plan Assessment/Plan (1) Pneumonia due to COVID-19 virus: (2) Acute respiratory failure with hypoxemia: (3) Constipation: (4) Acute anemia: (5) Hyperglycemia: (6) Streptococcal pneumonia: (7) MRSA pneumonia: PLAN: Acute hypoxic respiratory failure secondary to COVID-19 pneumonia/pneumococcal pneumonia/MRSA pneumonia -Intubated on 02/02/2021 -Patient remains on bilevel ventilation respiratory support with an FiO2 of 100% and a high PEEP of 25 and an SPO2 in the low to mid 80s -Wean FiO2 and PEEP high as able -Baricitinib dose 5 of 11 -Decadron dose 9 of 10 -ABG done this morning and shows hypoxia with what appears to be chronic hypercapnia given the normal pH -PO2 is 52 -PCO2 was 74.3 -Continue antibiotics with ceftriaxone and vancomycin to treat pneumococcal and MRSA pneumonias -Lasix as needed to maintain euvolemia -Proning initiated and goal is for 16 hours a day as tolerated -Patient did tolerate well yesterday -Appreciate ID and pulmonary medicine input -Patient may come out of isolation tomorrow as symptoms started 01/20/2021 Constipation -Improved patient with bowel movement today -Adjust bowel regimen accordingly Acute anemia -Suspect related to COVID-19 and frequent blood draws -Hemoglobin stable -No signs of bleeding -Continue prophylactic Protonix while intubated and on steroids Hyperglycemia secondary to steroid use -Mild elevations with no need for coverage at this time -Continue to monitor Obesity -BMI 32 -Complicates treatment, prognosis, outcomes DVT prophylaxis -SCDs -Lovenox with increase dose to 40 mg twice daily CODE STATUS -Full code -Overall prognosis is poor given current respiratory support requirements--> family meeting held today with no change in CODE STATUS--> prone ventilation initiation today normocytic Charges/Coding Visit Charges Inpatient E&M: 09959 Subs Hosp L2
[2021-02-09] VITALS (10 sets, daily range): BP systolic 104–145; BP diastolic 62–90; PULSE 113–141; RESP 13–24; TEMP 36.5–36.8; O2SAT 82–86
[2021-02-09] MEDS: Propofol 10MG/Ml 1,000 MG/100 ML Bottle 27.4 MG CONT INF (02:33)
[2021-02-09 02:58] LABS: Absolute Lymphocyte Count 0.84 X10^3/uL (0.83-4.51); Absolute Neutrophil Count 30.9 X10^3/uL (2.0-7.7); Basophil# 0.16 X10^3/uL; Basophil% 0.5 % (0-1); Eosinophil# 0.01 X10^3/uL; Hematocrit 48.9 % (40-54); Hemoglobin 14.5 g/dL (13.0-16.5); Lymphocyte # 0.84 X10^3/ul (0.83-4.51); Lymphocyte % 2.4 % (19-41); Mean Corp Hgb Conc 29.7 g/dL (32-36); Mean Corpuscular Hgb 28.3 pg (27.0-32.0); Mean Corpuscular Volume 95.5 fL (80-94); Mean Platelet Vol. 9.6 fl (6.2-12.0); Monocyte# 2.11 X10^3/uL; Monocyte% 5.9 % (0-10); NRBC Flagged by Analyzer 0.1 % (0-5); Neutrophil # 30.88 X10^3/uL (2.7-7.7); Neutrophil % 86.9 % (47-70); POSITIVE COUNT YES; POSITIVE DIFFERENTIAL YES; Platelet Count 644 K/mm3 (150-450); RBC Distribution Width CV 12.1 % (11.6-14.6); RBC Distribution Width SD 42.3 fl (35.1-43.9); Red Blood Count 5.12 M/mm3 (4.6-6.2)
[2021-02-09 03:02] LABS: Differential Indicated SCAN CRITERIA MET; White Blood Count 35.5 K/mm3 (4.4-11.0)
[2021-02-09 03:07] LABS: Magnesium 2.9 mg/dL (1.6-2.6)
[2021-02-09 03:15] LABS: Anion Gap 2 (5-15); BUN 53 mg/dL (7-18); BUN/Creat Ratio 57.9 RATIO (10-20); Calcium,Total 8.4 mg/dL (8.5-10.1); Chloride 100 mmol/L (98-107); Creatinine, Serum 0.92 mg/dL (0.70-1.30); EST Glomerular Filtration Rate 91 mL/min (>60); Est Glom Filt Rate - Afr Amer 110 mL/min (>60); Estimated Creatinine Clearance 93.67 ml/min; Glucose 169 mg/dL (74-106); Potassium 5.8 mmol/L (3.5-5.1); Sodium Level 140 mmol/L (136-145)
[2021-02-09 03:20] LABS: Differential Comment SCANNED
--- NOTE | 2021-02-09 03:44 | NURSING ---
Pt HR has increased throughout night, from 70's to 130's, with changes in P wave, matching height of QRS. Remains in Sinus tachycardia. Sedation has been paused to assess pt mentation or ability to follow commands. has been called for changes and invited to come in with oldest children.
[2021-02-09 04:16] LABS: CPK Total, Creatine Kinase 220 U/L (39-308); Triglycerides 564 mg/dL
[2021-02-09] MEDS: CHLORHEXIDINE GLUC 2% CLOTH 1 EACH TOWELETTE TOPICAL (04:40)
[2021-02-09 05:06] LABS: Allen Test Positive; Base Excess 9 mmol/L (-2 to +2); Bicarbonate 39.9 mmol/L (22-26); Blood Gas Specimen Type ART; FI02 100; Mode BiLevel; O2 Delivery Device Adult Vent; PO2 52 mmHG (75-100); SITE R Radial; SO2 64 % (95-99); Total Carbon Dioxide 45 mmol/L; pCO2 149.1 mmHg (35-45); pH 7.04 (7.35-7.45)
--- NOTE | 2021-02-09 06:02 | CPS ---
Critical values noted and Dr. Ortiz notified by HAND ASSEMBLER RICHARD
--- NOTE | 2021-02-09 06:14 | NURSING ---
Spoke, extensively, to family with Dr. Ortiz about code status and the likelihood the patient would not do well during turning from prone to supine position. Family is in agreement to change code status to DNRCC-A. Respiratory paged, and family is prepared.
--- NOTE | 2021-02-09 06:41 | NURSING ---
Pt was successfully turned with five nursing staff and one RT. Pt in position of comfort, and family brought to bedside. Monitor on privacy mode in patient room.
--- NOTE | 2021-02-09 07:05 | CPS ---
Pt , turned ventilator off.
--- NOTE | 2021-02-09 07:05 | PCM.PN.INT ---
Assessment & Plan Assessment/Plan (1) Pneumonia due to COVID-19 virus: (2) Acute respiratory failure with hypoxemia: PLAN: RECOMMENDATIONS: 1. Continue to wean FiO2 and P high to maintain oxygen saturations at or above 90%. 2. Continue current sedation regimen. Add Precedex when supine 3. Continue antimicrobials as ordered. 4. Continue Lovenox (prophylactic), baricitinib (02/14/2021) and Decadron (02/09/2021). 5. Diuretic therapy, as needed, to maintain euvolemic state. 6. Okay to give tube feeds while not supine. Continue aggressive bowel regimen 7. Continue appropriate GI prophylaxis. 8. Anticipate proning for 16 hours a day as tolerated IMPRESSIONS: 1. Acute hypoxemic respiratory failure secondary to ARDS secondary to COVID-19 and superimposed pneumococcal/MRSA pneumonia The patient passed at 7:08 AM. Cause of was COVID-19, pneumococcal and MRSA pneumonia leading to a respiratory arrest. 2. Sinus bradycardia TIME: 32 minutes of critical care time, independent of procedures, was spent addressing the patient's acute hypoxemic respiratory failure secondary to COVID-19 pneumonia, review of all data and collaboration with care team. (5:15 AM to 6:15 AM) Subjective Subjective Patient with significant decompensation overnight. Patient had a sedation turned off at 3 AM secondary to decreased responsiveness. Patient also noted to have coffee grounds out of his OG. Morning ABG showed significant hypoxia and hypercarbia. Family was called into the bedside. Extensive conversation with the family. They did change his CODE STATUS to DNR Comfort Care arrest. Plan was made to change patient to the supine position. Patient shortly decompensated and went into PEA arrest at approximately 7:08 AM. Family was at the bedside for this event. Patient was comfortable throughout. Objective Data Objective Data Vital Signs: Vital Signs Temp Pulse Resp BP Pulse Ox 36.5 C L 116 H 24 H 104/72 86 02/09/21 04:00 02/09/21 06:00 02/09/21 06:00 02/09/21 06:00 02/09/21 06:00 Oxygen Flow Rate (L/min) 90 Oxygen Delivery Method Mechanical Ventilator Weight: 102.9 kg Body Mass Index (BMI) 32.0 Intake & Output: Intake and Output for Last 24 Hours 02/07/21 02/08/21 02/09/21 23:59 23:59 23:59 Intake Total 2221.42 / 2267.59 3372.09 / 3429.69 218.98 / 218.98 Output Total 2660 / 2860 1350 / 1910 560 / 560 Balance -438.58 / -592.41 2022.09 / 1519.69 -341.02 / -341.02 Lab / Micro Data Result Diagrams: 02/09/21 02:30 02/09/21 02:30 Labs: Laboratory Results - last 24 hr 02/09/21 02:30: WBC 35.5 H*, RBC 5.12, Hgb 14.5, Hct 48.9, MCV 95.5 H, MCH 28.3, MCHC 29.7 L, RDW Std Deviation 42.3, RDW Coeff of Reyes 12.1, Plt Count 644 H, MPV 9.6, Immature Gran % (Auto) 4.300 H, Neut % (Auto) 86.9 H, Lymph % (Auto) 2.4 L, [place] % (Auto) 5.9, Eos % (Auto) 0.0, Baso % (Auto) 0.5, Absolute Neuts (auto) 30.9 H, Absolute Lymphs (auto) 0.84, Nucleated RBC % 0.1, Differential Comment SCANNED, Diff Path Review July02/09/21 02:30: Sodium 140, Potassium 5.8 H, Chloride 100, Carbon Dioxide 38.0 H, Anion Gap 2 L, BUN 53 H, Creatinine 0.92, Estim Creat Clear Calc 93.67, Est GFR (MDRD) Af Amer 110, Est GFR (MDRD) Non-Af 91, BUN/Creatinine Ratio 57.9 H, Glucose 169 H, Calcium 8.4 L 02/09/21 02:30: Magnesium 2.9 H 02/09/21 02:30: Total Creatine Kinase 220, Triglycerides 564 H Micro: Microbiology 02/02/21 09:16 Sputum, Induced/Lukens Gram Stain - Final 02/02/21 09:16 Sputum, Induced/Lukens Respiratory Culture - Final Meth. resistant Staph. aureus 01/30/21 08:00 Sputum, Expectorated/Coughed Gram Stain - Final 01/30/21 08:00 Sputum, Expectorated/Coughed Respiratory Culture - Final Meth. resistant Staph. aureus Streptococcus pneumoniae ABG Data ABG results: ABG 02/09/21 05:02 Specimen Type ART Sample Site R Radial pH 7.04 L* Bicarbonate Actual 39.9 H Total CO2 45 Base Excess 9 H O2 Saturation 64 L O2 % 100 ABG pCO2 149.1 H* ABG pO2 52 L Terrance Test Positive O2 Delivery Device Adult Vent Vent Mode BiLevel Crit Call To/Read Back Yes Clinical Comments Physical Exam Const no apparent distress Constitutional Narrative: No ventilator dyssynchrony noted. General Appearance: intubated and patient mechanically ventilated Nutritional Appearance: obese HEENT normocephalic and head/scalp atraumatic Eyes PERRL, EOMs intact bilaterally and conjunctivae normal Neck supple General: trachea midline Chest inspection of chest normal Chest: symmetrical chest wall rise; Negative for crepitus Resp Auscultation: rhonchi throughout and diminished lung sounds; Negative for rales or wheezes Cardio regular rhythm, S1 normal heart sound, S2 normal heart sound, no murmurs, no rub and no gallops Cardio Narrative: Sinus tachycardia on telemetry initially Rate: bradycardia GI normal to inspection, nondistended, normoactive bowel sounds Extremity General Extremity: edema bilateral lower extremity Details: mild; Negative for clubbing or cyanosis Skin Skin Narrative: Extensive mottling throughout the abdomen Neuro Sensorium / Orientation: sedated on vent Charges/Coding Procedures Hospitalists Procedures: [id number] Critial Care 1st Hr
--- NOTE | 2021-02-09 07:33 | NURSING ---
Pt had cardiac arrest at 07:04, with asystole on the monitor. Verified to heart beat with full minute auscultation, with Hebert Reynaga RN and Bolivar Blanchard RN, no cardiac activity. Ventilator shut down. Discussed home with [id number]. It is unknown at this time, what home the family wishes to have service.
--- NOTE | 2021-02-09 12:29 | PCM.DEATH ---
Preliminary Cause of Preliminary Cause of Preliminary Cause of : Acute hypoxic respiratory failure secondary to COVID-19 pneumonia Date of Admission: 01/29/21 Principle Diagnosis Problem List: Active and Suspected Problems (Updated 02/06/21 @ 14:[address] Mallika Umanzor, DO) MRSA pneumonia (Acute) Streptococcal pneumonia (Acute) Hyperglycemia (Acute) Acute anemia (Acute) Constipation (Acute) Pneumonia due to COVID-19 virus (Acute) Acute respiratory failure with hypoxemia (Acute) Hospital Course Mr. Byrd was a 55-year-old white male who presented to the emergency department [facility] on 01/29/2021 with a chief complaint of Covid-like symptoms. Upon presentation he had approximately 9-day history of progressively worsening symptoms that included shortness of breath, productive cough of greenish/yellow sputum, fatigue, weakness, dysgeusia, anosmia, myalgia and chills. The patient had tested positive for coronavirus at an outside facility. He had not been vaccinated against COVID-19 virus. On presentation his oxygen status was such that he required 15 L of heated high flow nasal cannula and his sats were 89%. In the emergency department he was noted to be febrile and tachypneic. He was initially admitted to the medical floor and placed on remdesivir, Decadron, and baricitinib but unfortunately required transfer to the ICU within 24 hours of admission because he was not able to tolerate noninvasive ventilation due to agitation and anxiety and required a Precedex drips to facilitate by PAP adherence. The Precedex did seem to initially help his compliance. Antimicrobials were also initiated upon transfer to the ICU and cultures were obtained. His respiratory status unfortunately worsened and he required intubation on 02/02/2021. His sputum culture from 01/30/2021 grew out MRSA and strep pneumo pneumonia. He had been on appropriate antibiotics since his transfer to the ICU of vancomycin and Zosyn which was then narrowed to ceftriaxone with sensitivities. A repeat sputum culture was obtained upon intubation on 02/02/2021 and this culture showed only MRSA. Unfortunately his respiratory status continued to worsen to the point where he required bilevel ventilation with 100% FiO2 and a high PEEP of 25 to maintain oxygen saturations but with time this was not even enough to maintain good oxygenation and ventilation. There was significant conversation with the family and they wanted to persist with aggressive measures up until 02/09/2021. At that time his oxygenation and ventilation were so poor and his a.m. ABG from 02/09/2021 showed a pH of 7.04 PCO2 of 149.1 and a PO2 of 52 with an oxygen saturation of 64%. Family was called and at that time and the patient on the a.m. of 02/09/2021 at 704. Family was at the bedside at the time of . Discharge diagnoses: Acute hypoxic and hypercapnic respiratory failure secondary to COVID-19 pneumonia COVID-19 pneumonia MRSA pneumonia Strep pneumo pneumonia Leukocytosis Acute anemia-resolved Hyperglycemia secondary to steroid use Obesity
[2021-02-10 09:47] LABS: Pathologist Review Reviewed
== END 2021-02-09 09:00 | DRG 720 ==
LOC: MS3 01-30 09:01 → ICU 01-31 07:30
PROVIDERS: Hospitalist; Internal Medicine; Internal Medicine Critical Care Medicine; Nurse Practitioner Family; Admitting Provider Family Medicine; Visit Provider Internal Medicine
DX: A41.89 Other specified sepsis (principal); U07.1 COVID-19; J96.01 Acute respiratory failure with hypoxia; J12.82 Pneumonia due to coronavirus disease 2019; J15.212 Pneumonia due to Methicillin resistant Staphylococcus aureus; J13 Pneumonia due to Streptococcus pneumoniae; E87.1 Hypo-osmolality and hyponatremia; J96.02 Acute respiratory failure with hypercapnia; R74.02 Elevation of levels of lactic acid dehydrogenase [LDH]; F41.9 Anxiety disorder, unspecified; R00.1 Bradycardia, unspecified; T42.6X5A Adverse effect of other antiepileptic and sedative-hypnotic drugs, initial encounter; E66.9 Obesity, unspecified; Z68.32 Body mass index [BMI] 32.0-32.9, adult; K59.00 Constipation, unspecified; D64.9 Anemia, unspecified; R73.9 Hyperglycemia, unspecified; T38.0X5A Adverse effect of glucocorticoids and synthetic analogues, initial encounter; Z66 Do not resuscitate
CPT/HCPCS: 31500; 31720; 36415; 36569; 36600; 71045; 80048; 80053; 80202; 82550; 82803; 83735; 84145; 84478; 85025; 87070; 87077; 87186; 87205; 94002; 94003; 94640; 94660; 94762; 97802; 97803; 99251; J7040; J7050; A4216; G0463; J0696; J1940; J3010